=== PATIENT | female | born 1940 | race Caucasian/White ===

== ENCOUNTER 2018-02-15 09:07 | Inpatient (IN) | payer MEDICARE, OTHER ==
[2018-02-15] MEDS ORDERED: Sodium Chloride 0.9% 10 ML Syringe FLUSH PRN (09:30)
[2018-02-15] MEDS ORDERED: Sodium Chloride 0.9% 1,000 ML IV ONE ×2 (09:46→11:22)
--- NOTE | 2018-02-15 09:46 | EDM.PDOC ---
ED HPI GENERAL MEDICAL PROBLEM - General Chief Complaint: Gastrointestinal Problem Stated Complaint: FEVER DIARRHEA Time Seen by Provider: 02/15/18 09:29 Source of Information: Reports: Patient History Limitations: Reports: No Limitations - History of Present Illness INITIAL COMMENTS - FREE TEXT/NARRATIVE: The patient is a 77-year-old female with history of irritable bowel syndrome who presents with diarrhea and fever. States that she's been ill for about a week. She traveled to [place] last week and upon arrival home started having diarrhea. Nobody else is ill. No camping. No exposure to known contaminated food or water. She's had some occasional crampy abdominal pain but nothing atypical for her. No pain at the time now. States that she's had intermittent fevers, temperature was as high as 101.8 last night. No vomiting. Decreased appetite. She is able to drink fluids but is not consuming solids due to low appetite. States she's lost 13 pounds in the last week. No urinary symptoms. No additional complaint. No cough. No recent antibiotics. No ill contacts. - Related Data Allergies Allergy/AdvReac Type Severity Reaction Status Date / Time Sulfa (Sulfonamide Allergy Other Verified 02/15/18 09:20 Antibiotics) tetracycline Allergy Other Verified 02/15/18 09:20 theophylline Allergy Excitabilit Verified 02/15/18 09:20 y Home Meds: Home Meds Benazepril [Lotensin] 20 mg PO DAILY 02/15/18 [History] Hydrochlorothiazide. 1 tab PO DAILY 02/15/18 [History] Past Medical History Cardiovascular History: Reports: Hypertension Gastrointestinal History: Reports: Irritable Bowel Syndrome Social & Family History - Tobacco Use Smoking Status *Q: Never Smoker ED ROS GENERAL - Review of Systems Review Of Systems: See Below Constitutional: Reports: Fever, Chills, Malaise, Weakness, Fatigue HEENT: Reports: No Symptoms Respiratory: Denies: Shortness of Breath Cardiovascular: Denies: Chest Pain Endocrine: Reports: Fatigue GI/Abdominal: Reports: Diarrhea, Decreased Appetite : Denies: Dysuria Musculoskeletal: Reports: No Symptoms Skin: Reports: No Symptoms Neurological: Reports: No Symptoms Psychiatric: Reports: No Symptoms Hematologic/Lymphatic: Reports: No Symptoms Immunologic: Reports: No Symptoms ED EXAM, GI/ABD - Physical Exam Exam: See Below Exam Limited By: No Limitations General Appearance: Alert, WD/WN, No Apparent Distress Eyes: Bilateral: Normal Appearance Ears: Normal External Exam Nose: Normal Inspection Throat/Mouth: Normal Inspection, Normal Oropharynx, Normal Voice, No Airway Compromise Head: Atraumatic, Normocephalic Neck: Normal Inspection, Supple, Non-Tender, Full Range of Motion Respiratory/Chest: No Respiratory Distress, Lungs Clear, Normal Breath Sounds, Chest Non-Tender Cardiovascular: Normal Peripheral Pulses, Regular Rate, Rhythm, No Edema GI/Abdominal Exam: Soft, Non-Tender, No Distention. No: Rebound Back Exam: Normal Inspection Extremities: Normal Inspection Neurological: Alert, Oriented, Normal Cognition, No Motor/Sensory Deficits Psychiatric: Normal Affect, Normal Mood Skin Exam: Warm, Dry, Intact, Normal Color, No Rash Course - Vital Signs Last Recorded V/S: Last Vital Signs Temp 37.0 C 02/15/18 09:20 Pulse 96 02/15/18 09:20 Resp 20 02/15/18 09:20 BP 123/63 02/15/18 09:20 Pulse Ox 95 02/15/18 09:20 - Orders/Labs/Meds Orders: Active Orders 24 hr Category Date Time Status EKG 12 Lead [EKG Documentation Completion] [RC] STAT Care 02/15/18 11:23 Active CAMPYLOBACTER CULT [MREF] Stat Lab 02/15/18 09:30 Ordered CULTURE STOOL + SHIGATOX [RM] Stat Lab 02/15/18 09:30 Ordered Magnesium Sulfate/Water [Magnesium Sulfate 2 GM in Med 02/15/18 11:22 Active Water 50 ML] 2 gm Premix Bag 1 bag IV ONETIME Potassium Chloride [KCl 10 MEQ in Water 100 ML] 10 meq Med 02/15/18 11:30 Active Premix Bag 1 bag IV Q1H Sodium Chloride 0.9% [Saline Flush] Med 02/15/18 09:30 Active 10 ml FLUSH ASDIRECTED PRN Peripheral IV Insertion Adult [OM.PC] Routine Oth 02/15/18 09:30 Ordered Medication Orders Potassium Chloride 10 meq/ (Premix) 100 mls @ 100 mls/hr IV Q1H EDITH Stop: 02/15/18 15:29 Last Admin: 02/15/18 12:44 Dose: 100 mls/hr Infusion: 02/15/18 12:44 Dose: 100 mls/hr Admin: 02/15/18 11:51 Dose: 100 mls/hr Magnesium Sulfate 2 gm/ Premix 50 mls @ 25 mls/hr IV ONETIME ONE Stop: 02/15/18 13:21 Last Admin: 02/15/18 11:50 Dose: 25 mls/hr Sodium Chloride (Saline Flush) 10 ml FLUSH ASDIRECTED PRN PRN Reason: Keep Vein Open Last Admin: 02/15/18 09:57 Dose: 10 ml Labs: Laboratory Tests 02/15/18 02/15/18 02/15/18 Range/Units 10:07 10:07 11:23 WBC 15.98 H (3.98-10.04) K/mm3 RBC 4.56 (3.98-5.22) M/mm3 Hgb 12.8 (11.2-15.7) gm/L Hct 37.1 (34.1-44.9) % MCV 81.4 (79.4-94.8) fl MCH 28.1 (25.6-32.2) pg MCHC 34.5 (32.2-35.5) g/dl RDW Std Deviation 42.9 (36.4-46.3) fL Plt Count 324 (182-369) K/mm3 MPV 9.5 (9.4-12.3) fl Neut % (Auto) 86.3 H (34.0-71.1) % Lymph % (Auto) 2.1 L (19.3-51.7) % [place] % (Auto) 10.3 (4.7-12.5) % Eos % (Auto) 0.4 L (0.7-5.8) Baso % (Auto) 0.1 (0.1-1.2) % Neut # (Auto) 13.78 H (1.56-6.13) K/mm3 Lymph # (Auto) 0.34 L (1.18-3.74) K/mm3 [place] # (Auto) 1.65 H (0.24-0.36) K/mm3 Eos # (Auto) 0.07 (0.04-0.36) K/mm3 Baso # (Auto) 0.02 (0.01-0.08) K/mm3 Manual Slide Review Abnormal smear Sodium 134 L (136-145) mEq/L Potassium 2.5 L (3.5-5.1) mEq/L Chloride 96 L (98-107) mEq/L Carbon Dioxide 26 (21-32) mEq/L Anion Gap 14.5 (5-15) BUN 29 H (7-18) mg/dL Creatinine 1.2 H (0.55-1.02) mg/dL Est Cr Clr Drug Dosing 32.99 mL/min Estimated GFR (MDRD) 44 (>60) mL/min BUN/Creatinine Ratio 24.2 H (14-18) Glucose 111 (83-115) mg/dL Calcium 8.3 L (8.5-10.1) mg/dL Magnesium 1.5 L (1.8-2.4) mg/dl Total Bilirubin 0.4 (0.2-1.0) mg/dL AST 65 H (15-37) U/L ALT 55 (14-59) U/L Alkaline Phosphatase 250 H (46-116) U/L Total Protein 6.6 (6.4-8.2) g/dl Albumin 2.3 L (3.4-5.0) g/dl Globulin 4.3 gm/dL Albumin/Globulin Ratio 0.5 L (1-2) Lipase 96 (73-393) U/L Urine Color Yellow (Yellow) Urine Appearance Cloudy H (Clear) Urine pH 6.0 (5.0-8.0) Ur Specific [place] 1.020 (1.005-1.030) Urine Protein 1+ H (Negative) Urine Glucose (UA) Negative (Negative) Urine Ketones Negative (Negative) Urine Occult Blood 2+ H (Negative) Urine Nitrite Negative (Negative) Urine Bilirubin Negative (Negative) Urine Urobilinogen 0.2 (0.2-1.0) Ur Leukocyte Esterase 2+ H (Negative) Urine RBC 10-20 H (0-5) /hpf Urine WBC 10-20 H (0-5) /hpf Ur Epithelial Cells 5-10 H (0-5) /hpf Urine Bacteria Many H (FEW) /hpf Hyaline Casts 0-5 (0-5) /lpf Urine Mucus Few (FEW) /hpf Meds: Medications Generic Name Dose Route Start Last Admin Trade Name Freq PRN Reason Stop Dose Admin Potassium Chloride 10 meq/ 100 mls @ 100 mls/hr 02/15/18 11:30 02/15/18 12:44 Premix IV 02/15/18 15:29 100 mls/hr Q1H EDITH Administration Magnesium Sulfate 2 gm/ Premix 50 mls @ 25 mls/hr 02/15/18 11:22 02/15/18 11: 50 IV 02/15/18 13:21 25 mls/hr ONETIME ONE Administration Sodium Chloride 10 ml 02/15/18 09:30 02/15/18 09:57 Saline Flush FLUSH 10 ml ASDIRECTED PRN Administration Keep Vein Open Discontinued Medications Generic Name Dose Route Start Last Admin Trade Name Freq PRN Reason Stop Dose Admin Sodium Chloride 1,000 mls @ 1,000 mls/hr 02/15/18 09:46 02/15/18 09:58 Normal Saline IV 02/15/18 10:45 1,000 mls/hr ONETIME ONE Administration Sodium Chloride 1,000 mls @ 1,000 mls/hr 02/15/18 11:22 02/15/18 11:51 Normal Saline IV 02/15/18 12:21 1,000 mls/hr ONETIME ONE Administration Potassium Chloride 40 meq 02/15/18 11:21 02/15/18 11:51 Klor-Con M20 PO 02/15/18 11:22 Not Given ONETIME ONE - Re-Assessments/Exams Free Text/Narrative Re-Assessment/Exam: 02/15/18 11:35 Lab significant for potassium of 2.5 and magnesium of 1.5. We'll replete. White count elevated at 16,000. However patient does not have a tender abdomen, will not image. Stool studies have been ordered. Discussed with Dr. Yang who agrees to evaluate the patient for admission. 02/15/18 13:04 Dr. Yang saw the patient in the emergency department and agreed to admit her. Departure - Departure Time of Disposition: 12:15 Disposition: Refer to Observation Clinical Impression: Hypokalemia, Hypomagnesemia, Dehydration Diarrhea Qualifiers: Diarrhea type: presumed infectious Qualified Code(s): R19.7 - Diarrhea, unspecified - Discharge Information - My Orders Last 24 Hours: My Active Orders 02/15/18 09:30 CAMPYLOBACTER CULT [MREF] Stat CULTURE STOOL + SHIGATOX [RM] Stat Sodium Chloride 0.9% [Saline Flush] 10 ml FLUSH ASDIRECTED PRN Peripheral IV Insertion Adult [OM.PC] Routine 02/15/18 11:22 Magnesium Sulfate/Water [Magnesium Sulfate 2 GM in Water 50 ML] 2 gm Premix Bag 1 bag IV ONETIME 02/15/18 11:23 EKG 12 Lead [EKG Documentation Completion] [RC] STAT 02/15/18 11:30 Potassium Chloride [KCl 10 MEQ in Water 100 ML] 10 meq Premix Bag 1 bag IV Q1H - Assessment/Plan Last 24 Hours: My Active Orders 02/15/18 09:30 CAMPYLOBACTER CULT [MREF] Stat CULTURE STOOL + SHIGATOX [RM] Stat Sodium Chloride 0.9% [Saline Flush] 10 ml FLUSH ASDIRECTED PRN Peripheral IV Insertion Adult [OM.PC] Routine 02/15/18 11:22 Magnesium Sulfate/Water [Magnesium Sulfate 2 GM in Water 50 ML] 2 gm Premix Bag 1 bag IV ONETIME 02/15/18 11:23 EKG 12 Lead [EKG Documentation Completion] [RC] STAT 02/15/18 11:30 Potassium Chloride [KCl 10 MEQ in Water 100 ML] 10 meq Premix Bag 1 bag IV Q1H
[2018-02-15] MEDS ORDERED: Potassium Chloride 20 MEQ Tab.ER PO ONE (11:21)
[2018-02-15] MEDS ORDERED: Magnesium Sulfate/Water 2 GM in Premix Bag 1 BAG IV ONE ×2 (11:22→18:00)
[2018-02-15] MEDS: Potassium Chloride 10 MEQ in Premix Bag 1 BAG IV SCH ×4 (11:51→18:21)
--- NOTE | 2018-02-15 12:59 | PCM.HP ---
H&P History of Present Illness - General Date of Service: 02/15/18 Admit Problem/Dx: Admission Diagnosis/Problem Admission Diagnosis/Problem Gastroenteritis Source of Information: Patient, Provider History Limitations: Reports: No Limitations - History of Present Illness Initial Comments - Free Text/Narative: 77 year old female with 1-2 week history of frequent stool without blood. However has had occasional bowel movements with mucous in the stool. Admits to fever on occasion, headache, nausea without vomiting. [place] Denies raw food, being exposed to different foods. Has experienced weight loss, and has had decreased appetite. Unable to describe frequency of bowel movement. reports PMH HTN, IBS. Has been admitted to obs with telemetry. Code: DNR/DNI Onset of Symptoms: Reports: Gradual Symptom Onset Date: 02/08/18 Duration of Symptoms: Reports: Week(s):, Getting Worse Location: Reports: Generalized Severity: Moderate Improves with: Reports: Medication Worsens with: Reports: None Context: Reports: Sick Contact (unknown) Associated Symptoms: Reports: Fever/Chills, Loss of Appetite, Malaise, Nausea/ Vomiting, Weakness Abdomen Pain Score (Numeric/FACES): 2 - Related Data Allergies/Adverse Reactions: Allergies Allergy/AdvReac Type Severity Reaction Status Date / Time Sulfa (Sulfonamide Allergy Other Verified 02/15/18 09:20 Antibiotics) tetracycline Allergy Other Verified 02/15/18 09:20 theophylline Allergy Excitabilit Verified 02/15/18 09:20 y Home Medications: Home Meds Benazepril [Lotensin] 20 mg PO DAILY 02/15/18 [History] Hydrochlorothiazide. 1 tab PO DAILY 02/15/18 [History] Past Medical History Cardiovascular History: Reports: Hypertension Gastrointestinal History: Reports: Irritable Bowel Syndrome Social & Family History - Tobacco Use Smoking Status *Q: Never Smoker H&P Review of Systems - Review of Systems: Review Of Systems: See Below General: Reports: Malaise, Weakness, Fatigue HEENT: Reports: Headaches Pulmonary: Reports: No Symptoms Cardiovascular: Reports: No Symptoms Gastrointestinal: Reports: Abdominal Pain, Mucous in Stool, Nausea Genitourinary: Reports: No Symptoms Musculoskeletal: Reports: No Symptoms Skin: Reports: No Symptoms Psychiatric: Reports: No Symptoms Neurological: Reports: No Symptoms Exam - Exam Exam: See Below - Vital Signs Vital Signs: Last Vital Signs Temp 37.0 C 02/15/18 09:20 Pulse 96 02/15/18 09:20 Resp 20 02/15/18 09:20 BP 123/63 02/15/18 09:20 Pulse Ox 95 02/15/18 09:20 Weight: 81.647 kg - Exam Quality Assessment: DVT Prophylaxis General: Alert, Oriented, Cooperative HEENT: Conjunctiva Clear, Nares Patent, Normal Nasal Septum, Pupils Equal, Pupils Reactive, PERRLA Neck: Trachea Midline Lungs: Normal Respiratory Effort Cardiovascular: Regular Rate, Regular Rhythm GI/Abdominal Exam: Normal Bowel Sounds, Soft, Non-Tender, No Organomegaly, No Distention (Female) Exam: Deferred Rectal (Female) Exam: Deferred Back Exam: Normal Inspection Extremities: Normal Inspection, Non-Tender, Slow Capillary Refill Skin: Warm, Dry, Intact Neurological: Cranial Nerves Intact, Normal Gait, Normal Speech Neuro Extensive - Mental Status: Alert, Oriented x3, Normal Mood/Affect, Normal Cognition, Memory Intact Neuro Extensive - Motor, Sensory, Reflexes: CN II-XII Intact Psychiatric: Alert, Normal Affect, Normal Mood - Patient Data Lab Results Last 24 hrs: Laboratory Results - last 24 hr 02/15/18 02/15/18 02/15/18 Range/Units 10:07 10:07 11:23 WBC 15.98 H (3.98-10.04) K/mm3 RBC 4.56 (3.98-5.22) M/mm3 Hgb 12.8 (11.2-15.7) gm/L Hct 37.1 (34.1-44.9) % MCV 81.4 (79.4-94.8) fl MCH 28.1 (25.6-32.2) pg MCHC 34.5 (32.2-35.5) g/dl RDW Std Deviation 42.9 (36.4-46.3) fL Plt Count 324 (182-369) K/mm3 MPV 9.5 (9.4-12.3) fl Neut % (Auto) 86.3 H (34.0-71.1) % Lymph % (Auto) 2.1 L (19.3-51.7) % [place] % (Auto) 10.3 (4.7-12.5) % Eos % (Auto) 0.4 L (0.7-5.8) Baso % (Auto) 0.1 (0.1-1.2) % Neut # (Auto) 13.78 H (1.56-6.13) K/mm3 Lymph # (Auto) 0.34 L (1.18-3.74) K/mm3 [place] # (Auto) 1.65 H (0.24-0.36) K/mm3 Eos # (Auto) 0.07 (0.04-0.36) K/mm3 Baso # (Auto) 0.02 (0.01-0.08) K/mm3 Manual Slide Review Abnormal smear Sodium 134 L (136-145) mEq/L Potassium 2.5 L (3.5-5.1) mEq/L Chloride 96 L (98-107) mEq/L Carbon Dioxide 26 (21-32) mEq/L Anion Gap 14.5 (5-15) BUN 29 H (7-18) mg/dL Creatinine 1.2 H (0.55-1.02) mg/dL Est Cr Clr Drug Dosing 32.99 mL/min Estimated GFR (MDRD) 44 (>60) mL/min BUN/Creatinine Ratio 24.2 H (14-18) Glucose 111 (83-115) mg/dL Calcium 8.3 L (8.5-10.1) mg/dL Magnesium 1.5 L (1.8-2.4) mg/dl Total Bilirubin 0.4 (0.2-1.0) mg/dL AST 65 H (15-37) U/L ALT 55 (14-59) U/L Alkaline Phosphatase 250 H (46-116) U/L Total Protein 6.6 (6.4-8.2) g/dl Albumin 2.3 L (3.4-5.0) g/dl Globulin 4.3 gm/dL Albumin/Globulin Ratio 0.5 L (1-2) Lipase 96 (73-393) U/L Urine Color Yellow (Yellow) Urine Appearance Cloudy H (Clear) Urine pH 6.0 (5.0-8.0) Ur Specific [place] 1.020 (1.005-1.030) Urine Protein 1+ H (Negative) Urine Glucose (UA) Negative (Negative) Urine Ketones Negative (Negative) Urine Occult Blood 2+ H (Negative) Urine Nitrite Negative (Negative) Urine Bilirubin Negative (Negative) Urine Urobilinogen 0.2 (0.2-1.0) Ur Leukocyte Esterase 2+ H (Negative) Urine RBC 10-20 H (0-5) /hpf Urine WBC 10-20 H (0-5) /hpf Ur Epithelial Cells 5-10 H (0-5) /hpf Urine Bacteria Many H (FEW) /hpf Hyaline Casts 0-5 (0-5) /lpf Urine Mucus Few (FEW) /hpf Result Diagrams: 02/15/18 10:07 02/15/18 10:07 - Problem List (1) Hypertension SNOMED Code(s): 06664113 ICD Code: I10 - ESSENTIAL (PRIMARY) HYPERTENSION Status: Acute Current Visit: Yes (2) Dehydration SNOMED Code(s): 55542842 ICD Code: E86.0 - DEHYDRATION Status: Acute Current Visit: Yes (3) Diarrhea SNOMED Code(s): 63500196 ICD Code: R19.7 - DIARRHEA, UNSPECIFIED Status: Acute Current Visit: Yes Qualifiers: Diarrhea type: presumed infectious Qualified Code(s): R19.7 - Diarrhea, unspecified (4) Hypokalemia SNOMED Code(s): 99726916 ICD Code: E87.6 - HYPOKALEMIA Status: Acute Current Visit: Yes (5) Hypomagnesemia SNOMED Code(s): 450112341 ICD Code: E83.42 - HYPOMAGNESEMIA Status: Acute Current Visit: Yes Problem List Initiated/Reviewed/Updated: Yes Orders Last 24hrs: Active Orders 24 hr Category Date Time Status Patient Status [ADT] Routine ADT 02/15/18 12:39 Active EKG 12 Lead [EKG Documentation Completion] [RC] STAT Care 02/15/18 11:23 Active CAMPYLOBACTER CULT [MREF] Stat Lab 02/15/18 09:30 Ordered CULTURE STOOL + SHIGATOX [RM] Stat Lab 02/15/18 09:30 Ordered Magnesium Sulfate/Water [Magnesium Sulfate 2 GM in Med 02/15/18 11:22 Active Water 50 ML] 2 gm Premix Bag 1 bag IV ONETIME Potassium Chloride [KCl 10 MEQ in Water 100 ML] 10 meq Med 02/15/18 11:30 Active Premix Bag 1 bag IV Q1H Sodium Chloride 0.9% [Saline Flush] Med 02/15/18 09:30 Active 10 ml FLUSH ASDIRECTED PRN Peripheral IV Insertion Adult [OM.PC] Routine Oth 02/15/18 09:30 Ordered Medication Orders Potassium Chloride 10 meq/ (Premix) 100 mls @ 100 mls/hr IV Q1H EDITH Stop: 02/15/18 15:29 Last Admin: 02/15/18 12:44 Dose: 100 mls/hr Infusion: 02/15/18 12:44 Dose: 100 mls/hr Admin: 02/15/18 11:51 Dose: 100 mls/hr Magnesium Sulfate 2 gm/ Premix 50 mls @ 25 mls/hr IV ONETIME ONE Stop: 02/15/18 13:21 Last Admin: 02/15/18 11:50 Dose: 25 mls/hr Sodium Chloride (Saline Flush) 10 ml FLUSH ASDIRECTED PRN PRN Reason: Keep Vein Open Last Admin: 02/15/18 09:57 Dose: 10 ml Assessment/Plan Comment:: Impression: Abdominal pain with diarrhea; no recent ravel or sick exposure Acute gastroenteritis Electrolyte abnormalities Chronic HTN IBS Plan: IVF Advance diet as tolerated. Electrolyte replacement Stool studies CT abd/pelvis w/ contrast DVT/GI prophylaxis Full code OBS admission. Code status: DNR/DNI Consult PT/OT/CM
[2018-02-15] MEDS: Sodium Chloride 0.9% 1,000 ML IV SCH ×2 (13:15→21:03)
[2018-02-15] MEDS: Sodium Chloride 0.9% 1,000 ML ONE ×2 (14:08→14:09)
[2018-02-15] MEDS ORDERED: Bismuth Subsalicylate 262 MG/15 ML Susp 236 ML Bottle PO PRN (14:41)
[2018-02-15] MEDS ORDERED: Famotidine 20 MG/2 ML SDV IVPUSH SCH (14:45)
[2018-02-15] MEDS ORDERED: hydrALAZINE 20 MG/ML SDV IVPUSH PRN (16:22)
[2018-02-15] MEDS: Dicyclomine 10 MG Cap PO SCH ×2 (18:10→21:03)
[2018-02-15] MEDS ORDERED: Potassium Chloride 10 MEQ in Premix Bag 1 BAG IV ONE (18:15)
[2018-02-15] MEDS: Potassium Chloride 10% 20 MEQ/15 ML Soln 15 ML UD Cup PO SCH ×2 (18:17→18:24)
[2018-02-15] MEDS ORDERED: Acetaminophen 325 MG Tab PO PRN (19:09)
[2018-02-15] MEDS: Famotidine 20 MG/2 ML SDV IVPUSH SCH (20:18)
[2018-02-16] MEDS: Dicyclomine 10 MG Cap PO SCH ×4 (06:01→22:35)
[2018-02-16] MEDS: Potassium Chloride 10% 20 MEQ/15 ML Soln 15 ML UD Cup PO SCH ×2 (06:01→12:51)
[2018-02-16] MEDS ORDERED: Ondansetron 4 MG/2 ML SDV IVPUSH PRN (07:04)
[2018-02-16] MEDS: Sodium Chloride 0.9% 1,000 ML IV SCH ×2 (09:58→16:42)
--- NOTE | 2018-02-16 13:13 | PCM.PN ---
<Elida Panda - Last Filed: 02/16/18 14:26> - General Info Date of Service: 02/16/18 Admission Dx/Problem (Free Text): Admission Diagnosis/Problem Admission Diagnosis/Problem Gastroenteritis Functional Status: Reports: Pain Controlled, Tolerating Diet, Ambulating, Urinating - Review of Systems General: Reports: Weakness, Fatigue HEENT: Reports: No Symptoms Pulmonary: Reports: No Symptoms Cardiovascular: Reports: No Symptoms Gastrointestinal: Reports: Abdominal Pain, Diarrhea Genitourinary: Reports: No Symptoms Musculoskeletal: Reports: No Symptoms Skin: Reports: No Symptoms Neurological: Reports: No Symptoms Psychiatric: Reports: No Symptoms Systems Review Comment:: Patient is still experiencing diarrhea, associated with abdominal cramps. She still has some weakness and fatigue though this has improved. She denies all other symptoms. Appetite has returned and she would like to eat. - Patient Data Vitals - Most Recent: Last Vital Signs Temp 97.9 F 02/16/18 08:21 Pulse 83 02/16/18 08:21 Resp 24 H 02/16/18 08:21 BP 129/58 L 02/16/18 08:21 Pulse Ox 92 L 02/16/18 08:21 Weight - Most Recent: 85.502 kg I&O - Last 24 Hours: Intake & Output 02/15/18 02/16/18 02/16/18 22:59 06:59 14:59 Intake Total 1595 1352 Output Total 2200 Balance 1595 -848 Lab Results Last 24 Hours: Laboratory Results - last 24 hr 02/16/18 02/16/18 02/16/18 Range/Units 06:35 06:35 06:35 WBC 11.49 H (3.98-10.04) K/mm3 RBC 4.28 (3.98-5.22) M/mm3 Hgb 11.7 (11.2-15.7) gm/L Hct 35.3 (34.1-44.9) % MCV 82.5 (79.4-94.8) fl MCH 27.3 (25.6-32.2) pg MCHC 33.1 (32.2-35.5) g/dl RDW Std Deviation 42.7 (36.4-46.3) fL Plt Count 312 (182-369) K/mm3 MPV 9.4 (9.4-12.3) fl Neut % (Auto) 80.6 H (34.0-71.1) % Lymph % (Auto) 4.9 L (19.3-51.7) % [place] % (Auto) 12.6 H (4.7-12.5) % Eos % (Auto) 0.8 (0.7-5.8) Baso % (Auto) 0.2 (0.1-1.2) % Neut # (Auto) 9.27 H (1.56-6.13) K/mm3 Lymph # (Auto) 0.56 L (1.18-3.74) K/mm3 [place] # (Auto) 1.45 H (0.24-0.36) K/mm3 Eos # (Auto) 0.09 (0.04-0.36) K/mm3 Baso # (Auto) 0.02 (0.01-0.08) K/mm3 Manual Slide Review Abnormal smear Sodium 137 (136-145) mEq/L Potassium 3.4 L (3.5-5.1) mEq/L Chloride 102 (98-107) mEq/L Carbon Dioxide 27 (21-32) mEq/L Anion Gap 11.4 (5-15) BUN 11 (7-18) mg/dL Creatinine 0.9 (0.55-1.02) mg/dL Est Cr Clr Drug Dosing 42.06 mL/min Estimated GFR (MDRD) > 60 (>60) mL/min BUN/Creatinine Ratio 12.2 L (14-18) Glucose 120 H (83-115) mg/dL Calcium 8.2 L (8.5-10.1) mg/dL Magnesium 2.0 (1.8-2.4) mg/dl C-Reactive Protein 21.4 H* (<1.0) mg/dL H. pylori IgG Antibody Negative (NEGATIVE) Gera Results Last 24 Hours: Microbiology 02/16/18 06:50 Helicobacter pylori Antigen - Final Stool / Feces - Stool, Formed NEGATIVE H. PYLORI AG Med Orders - Current: Current Medications Acetaminophen (Tylenol) 650 mg PO Q4H PRN PRN Reason: Pain/Fever Last Admin: 02/16/18 00:25 Dose: 650 mg Bismuth Subsalicylate (Pepto Bismol) 15 ml PO Q6H PRN PRN Reason: Diarrhea Dicyclomine HCl (Bentyl) 10 mg PO QIDACANDBED [facility] Last Admin: 02/16/18 11:44 Dose: 10 mg Famotidine (Pepcid) 20 mg IVPUSH BEDTIME [facility] Last Admin: 02/15/18 20:18 Dose: 20 mg Hydralazine HCl (Apresoline) 20 mg IVPUSH Q6H PRN PRN Reason: Hypertension Sodium Chloride (Normal Saline) 1,000 mls @ 150 mls/hr IV ASDIRECTED [facility] Last Admin: 02/16/18 09:58 Dose: 150 mls/hr Ondansetron HCl (Zofran) 4 mg IVPUSH Q4HR PRN PRN Reason: Nausea/Vomiting Last Admin: 02/16/18 07:14 Dose: 4 mg Sodium Chloride (Saline Flush) 10 ml FLUSH ASDIRECTED PRN PRN Reason: Keep Vein Open Last Admin: 02/15/18 09:57 Dose: 10 ml Discontinued Medications Famotidine (Pepcid) 20 mg IVPUSH BID [facility] [place] Last Admin: 02/15/18 22:04 Dose: Not Given Sodium Chloride (Normal Saline) 1,000 mls @ 1,000 mls/hr IV ONETIME ONE Stop: 02/15/18 10:45 Last Admin: 02/15/18 09:58 Dose: 1,000 mls/hr Potassium Chloride 10 meq/ (Premix) 100 mls @ 100 mls/hr IV Q1H [facility] Stop: 02/15/18 15:29 Last Admin: 02/15/18 18:21 Dose: 100 mls/hr Magnesium Sulfate 2 gm/ Premix 50 mls @ 25 mls/hr IV ONETIME ONE Stop: 02/15/18 13:21 Last Admin: 02/15/18 11:50 Dose: 25 mls/hr Sodium Chloride (Normal Saline) 1,000 mls @ 1,000 mls/hr IV ONETIME ONE Stop: 02/15/18 12:21 Last Admin: 02/15/18 11:51 Dose: 1,000 mls/hr Sodium Chloride (Normal Saline) Confirm Administered Dose 1,000 mls @ as directed .ROUTE .STK-MED ONE Stop: 02/15/18 13:17 Last Admin: 02/15/18 14:09 Dose: Not Given Magnesium Sulfate 2 gm/ Premix 50 mls @ 25 mls/hr IV ONETIME ONE Stop: 02/15/18 19:59 Last Admin: 02/15/18 17:59 Dose: 25 mls/hr Potassium Chloride 10 meq/ (Premix) 100 mls @ 100 mls/hr IV ONETIME ONE Stop: 02/15/18 19:14 Last Admin: 02/15/18 18:23 Dose: Not Given Potassium Chloride (Klor-Con M20) 40 meq PO ONETIME ONE Stop: 02/15/18 11:22 Last Admin: 02/15/18 11:51 Dose: Not Given Potassium Chloride (Potassium Chloride Solution) 40 meq PO TIDMEALS [facility] Stop: 02/16/18 07:01 Last Admin: 02/15/18 18:24 Dose: Not Given Potassium Chloride (Potassium Chloride Solution) 40 meq PO TIDMEALS [facility] [place] Stop: 02/16/18 11:01 Last Admin: 02/16/18 12:51 Dose: Not Given - Exam Quality Assessment: DVT Prophylaxis General: Alert, Oriented, Cooperative, No Acute Distress HEENT: Pupils Equal, Pupils Reactive, EOMI, Mucous Membr. Moist/[place] Neck: Supple Lungs: Clear to Auscultation, Normal Respiratory Effort Cardiovascular: Regular Rate, Regular Rhythm GI/Abdominal Exam: Normal Bowel Sounds, Soft, Non-Tender (Female) Exam: Deferred Extremities: Normal Inspection, Normal Range of Motion, Non-Tender Peripheral Pulses: 2+: Radial (L), Radial (R), Posterior Tibial (L), Posterior Tibial (R) Skin: Warm, Dry, Intact Neurological: No New Focal Deficit Psy/Mental Status: Alert, Normal Affect, Normal Mood Physical Findings Comments:: Patient appears comfortable and in no acute distress. She is pleasant and cooperative. No abnormalities are found upon physical exam. No abdominal tenderness upon palpation and no abnormal bowel sounds are appreciated. - Problem List & Annotations (1) Diarrhea SNOMED Code(s): 02715131 Code(s): R19.7 - DIARRHEA, UNSPECIFIED Status: Acute Current Visit: Yes Qualifiers: Diarrhea type: presumed infectious Qualified Code(s): R19.7 - Diarrhea, unspecified (2) Hypokalemia SNOMED Code(s): 91582552 Code(s): E87.6 - HYPOKALEMIA Status: Acute Current Visit: Yes (3) Hypomagnesemia SNOMED Code(s): 198118272 Code(s): E83.42 - HYPOMAGNESEMIA Status: Acute Current Visit: Yes - Problem List Review Problem List Initiated/Reviewed/Updated: Yes - Plan Plan:: Acute gastroenteritis * Consistent with presentation of diarrhea, abdominal pain, fever * No sick contact * Recent travel to [place] * History of IBS * WBC elevated at 15.98 upon admission; now decreased to 11.49 * CRP elevated at 21.4 * Evaluation * Negative for H. pylori * Stool culture pending * Stool ova/parasites pending * Management * IVF * Advance diet as tolerated * Supportive care Electrolyte abnormalities * 2/2 to diarrhea; lack of dietary intake * Potassium improved from 2.5 to 3.4 * Magnesium improved from 1.5 to 2.0 * Chloride improved 96 to 102 * Continue electrolyte replacement prn DVT/GI prophylaxis OBS admission. Code status: DNR/DNI Consult PT/OT/CM/diet Elida Panda, MS-3. Dr. Stock has examined the patient and reviewed the note. <Gus Stock T - Last Filed: 02/16/18 17:47> - Patient Data Vitals - Most Recent: Last Vital Signs Temp 36.6 C 02/16/18 08:21 Pulse 83 02/16/18 08:21 Resp 24 H 02/16/18 08:21 BP 129/58 L 02/16/18 08:21 Pulse Ox 92 L 02/16/18 08:21 I&O - Last 24 Hours: Intake & Output 02/16/18 02/16/18 02/16/18 06:59 14:59 22:59 Intake Total 1352 120 760 Output Total 2200 Balance -848 120 760 Lab Results Last 24 Hours: Laboratory Results - last 24 hr 02/16/18 02/16/18 02/16/18 Range/Units 06:35 06:35 06:35 WBC 11.49 H (3.98-10.04) K/mm3 RBC 4.28 (3.98-5.22) M/mm3 Hgb 11.7 (11.2-15.7) gm/L Hct 35.3 (34.1-44.9) % MCV 82.5 (79.4-94.8) fl MCH 27.3 (25.6-32.2) pg MCHC 33.1 (32.2-35.5) g/dl RDW Std Deviation 42.7 (36.4-46.3) fL Plt Count 312 (182-369) K/mm3 MPV 9.4 (9.4-12.3) fl Neut % (Auto) 80.6 H (34.0-71.1) % Lymph % (Auto) 4.9 L (19.3-51.7) % [place] % (Auto) 12.6 H (4.7-12.5) % Eos % (Auto) 0.8 (0.7-5.8) Baso % (Auto) 0.2 (0.1-1.2) % Neut # (Auto) 9.27 H (1.56-6.13) K/mm3 Lymph # (Auto) 0.56 L (1.18-3.74) K/mm3 [place] # (Auto) 1.45 H (0.24-0.36) K/mm3 Eos # (Auto) 0.09 (0.04-0.36) K/mm3 Baso # (Auto) 0.02 (0.01-0.08) K/mm3 Manual Slide Review Abnormal smear Sodium 137 (136-145) mEq/L Potassium 3.4 L (3.5-5.1) mEq/L Chloride 102 (98-107) mEq/L Carbon Dioxide 27 (21-32) mEq/L Anion Gap 11.4 (5-15) BUN 11 (7-18) mg/dL Creatinine 0.9 (0.55-1.02) mg/dL Est Cr Clr Drug Dosing 42.06 mL/min Estimated GFR (MDRD) > 60 (>60) mL/min BUN/Creatinine Ratio 12.2 L (14-18) Glucose 120 H (83-115) mg/dL Calcium 8.2 L (8.5-10.1) mg/dL Magnesium 2.0 (1.8-2.4) mg/dl C-Reactive Protein 21.4 H* (<1.0) mg/dL H. pylori IgG Antibody Negative (NEGATIVE) Gera Results Last 24 Hours: Microbiology 02/15/18 15:20 Aerobic Blood Culture - Preliminary Blood NO GROWTH AFTER 1 DAY Anaerobic Blood Culture - Preliminary NO GROWTH AFTER 1 DAY 02/16/18 06:50 Helicobacter pylori Antigen - Final Stool / Feces - Stool, Formed NEGATIVE H. PYLORI AG Med Orders - Current: Current Medications Acetaminophen (Tylenol) 650 mg PO Q4H PRN PRN Reason: Pain/Fever Last Admin: 02/16/18 00:25 Dose: 650 mg Benazepril HCl (Lotensin) 20 mg PO DAILY [facility] Bismuth Subsalicylate (Pepto Bismol) 15 ml PO Q6H PRN PRN Reason: Diarrhea Dicyclomine HCl (Bentyl) 10 mg PO QIDACANDBED [facility] Last Admin: 02/16/18 11:44 Dose: 10 mg Famotidine (Pepcid) 20 mg IVPUSH BEDTIME [facility] Last Admin: 02/15/18 20:18 Dose: 20 mg Hydralazine HCl (Apresoline) 20 mg IVPUSH Q6H PRN PRN Reason: Hypertension Hydrochlorothiazide (Hydrochlorothiazide) 25 mg PO DAILY [facility] Sodium Chloride (Normal Saline) 1,000 mls @ 150 mls/hr IV ASDIRECTED [facility] Last Admin: 02/16/18 16:42 Dose: 150 mls/hr Potassium Chloride 10 meq/ (Premix) 100 mls @ 50 mls/hr IV Q2H [facility] Stop: 02/16/18 18:59 Last Admin: 02/16/18 17:09 Dose: 50 mls/hr Ondansetron HCl (Zofran) 4 mg IVPUSH Q4HR PRN PRN Reason: Nausea/Vomiting Last Admin: 02/16/18 07:14 Dose: 4 mg Potassium Chloride (Pharmacy To Dose - Potassium Replacement) 0 dose .XX ASDIRECTED [facility] Sodium Chloride (Saline Flush) 10 ml FLUSH ASDIRECTED PRN PRN Reason: Keep Vein Open Last Admin: 02/15/18 09:57 Dose: 10 ml Discontinued Medications Famotidine (Pepcid) 20 mg IVPUSH BID [facility] Last Admin: 02/15/18 22:04 Dose: Not Given Sodium Chloride (Normal Saline) 1,000 mls @ 1,000 mls/hr IV ONETIME ONE Stop: 02/15/18 10:45 Last Admin: 02/15/18 09:58 Dose: 1,000 mls/hr Potassium Chloride 10 meq/ (Premix) 100 mls @ 100 mls/hr IV Q1H [facility] Stop: 02/15/18 15:29 Last Admin: 02/15/18 18:21 Dose: 100 mls/hr Magnesium Sulfate 2 gm/ Premix 50 mls @ 25 mls/hr IV ONETIME ONE Stop: 02/15/18 13:21 Last Admin: 02/15/18 11:50 Dose: 25 mls/hr Sodium Chloride (Normal Saline) 1,000 mls @ 1,000 mls/hr IV ONETIME ONE Stop: 02/15/18 12:21 Last Admin: 02/15/18 11:51 Dose: 1,000 mls/hr Sodium Chloride (Normal Saline) Confirm Administered Dose 1,000 mls @ as directed .ROUTE .STK-MED ONE Stop: 02/15/18 13:17 Last Admin: 02/15/18 14:09 Dose: Not Given Magnesium Sulfate 2 gm/ Premix 50 mls @ 25 mls/hr IV ONETIME ONE Stop: 02/15/18 19:59 Last Admin: 02/15/18 17:59 Dose: 25 mls/hr Potassium Chloride 10 meq/ (Premix) 100 mls @ 100 mls/hr IV ONETIME ONE Stop: 02/15/18 19:14 Last Admin: 02/15/18 18:23 Dose: Not Given Potassium Chloride (Klor-Con M20) 40 meq PO ONETIME ONE Stop: 02/15/18 11:22 Last Admin: 02/15/18 11:51 Dose: Not Given Potassium Chloride (Potassium Chloride Solution) 40 meq PO TIDMEALS [facility] Stop: 02/16/18 07:01 Last Admin: 02/15/18 18:24 Dose: Not Given Potassium Chloride (Potassium Chloride Solution) 40 meq PO TIDMEALS [facility] [place] Stop: 02/16/18 11:01 Last Admin: 02/16/18 12:51 Dose: Not Given - My Orders Last 24 Hours: My Active Orders 02/16/18 06:50 OVA & PARASITES BY IMMUNOASSAY [MREF] Stat 02/16/18 13:36 Consult to Dietary [Consult to Soft Mud Molder] [CONS] Routine 02/16/18 13:44 Sequential Compression Device [OM.PC] Routine 02/16/18 14:30 Potassium Rep Pharmacy to Dose [Pharmacy to Dose - Potassium Replacement] 0 dose .XX ASDIRECTED 02/16/18 15:00 Potassium Chloride [KCl 10 MEQ in Water 100 ML] 10 meq Premix Bag 1 bag IV Q2H 02/16/18 Dinner Soft Diet [DIET] 02/17/18 09:00 Benazepril [Lotensin] 20 mg PO DAILY hydroCHLOROthiazide 25 mg PO DAILY - Plan Plan:: Patient was seen and examined at bedside in concert with the medical student. The assessment and plans were discussed and agreed upon with me. Patient is unable to take oral potassium and therefore she will be switched to IV instead. Stool studies are still pending. H. pylori screening is negative. Will advance diet to soft, consult dietary, resume home medications, SCDs for DVT prophylaxis and encourage to ambulate as tolerated.
[2018-02-16] MEDS: Potassium Chloride 10 MEQ in Premix Bag 1 BAG IV SCH ×2 (15:36→17:09)
[2018-02-16] MEDS: Famotidine 20 MG/2 ML SDV IVPUSH SCH (22:35)
[2018-02-16] MEDS: HYDROCHLOROTHIAZIDE 25 MG PO SCH (23:03)
[2018-02-16] MEDS: BENAZEPRIL 20 MG PO SCH (23:03)
[2018-02-16] MEDS: DIPHENHYDRAMINE PO PRN (23:04)
[2018-02-16] MEDS: ACETAMINOPHEN PO PRN (23:04)
[2018-02-17] MEDS: Dicyclomine 10 MG Cap PO SCH ×4 (06:42→21:19)
[2018-02-17] MEDS ORDERED: Magnesium Sulfate/Water 2 GM in Premix Bag 1 BAG IV ONE (09:00)
[2018-02-17] MEDS: Loperamide 2 MG Cap PO PRN (09:47)
[2018-02-17] MEDS: Potassium Chloride 10 MEQ in Premix Bag 1 BAG IV SCH ×5 (10:01→16:42)
--- NOTE | 2018-02-17 10:53 | PCM.PN ---
<Elida Panda - Last Filed: 02/17/18 10:53> - General Info Date of Service: 02/17/18 Admission Dx/Problem (Free Text): Admission Diagnosis/Problem Admission Diagnosis/Problem Gastroenteritis Functional Status: Reports: Pain Controlled, Tolerating Diet, Ambulating, Urinating - Review of Systems General: Reports: No Symptoms. Denies: Fever, Weakness, Fatigue, Chills HEENT: Reports: No Symptoms. Denies: Headaches Pulmonary: Reports: No Symptoms. Denies: Shortness of Breath Cardiovascular: Reports: No Symptoms. Denies: Chest Pain Gastrointestinal: Reports: Diarrhea. Denies: Abdominal Pain, Flatus Genitourinary: Reports: No Symptoms Musculoskeletal: Reports: No Symptoms Skin: Reports: No Symptoms Neurological: Reports: No Symptoms Psychiatric: Reports: No Symptoms Systems Review Comment:: Patient states she is doing well. She had a partially formed stool this morning following breakfast. Her last stool prior to that was diarrhea yesterday at about noon. She denies all other symptoms including abdominal pain, flatulence, fever, and chills. She slept well through the night and had no issues. - Patient Data Vitals - Most Recent: Last Vital Signs Temp 98.4 F 02/17/18 07:55 Pulse 86 02/17/18 07:55 Resp 18 02/17/18 07:55 BP 129/91 H 02/17/18 07:55 Pulse Ox 91 L 02/17/18 07:55 Weight - Most Recent: 86.721 kg I&O - Last 24 Hours: Intake & Output 02/16/18 02/17/18 02/17/18 22:59 06:59 14:59 Intake Total 3172 1100 Balance 3172 1100 Lab Results Last 24 Hours: Laboratory Results - last 24 hr 02/17/18 02/17/18 Range/Units 06:50 06:50 WBC 10.75 H (3.98-10.04) K/mm3 RBC 4.26 (3.98-5.22) M/mm3 Hgb 11.7 (11.2-15.7) gm/L Hct 35.3 (34.1-44.9) % MCV 82.9 (79.4-94.8) fl MCH 27.5 (25.6-32.2) pg MCHC 33.1 (32.2-35.5) g/dl RDW Std Deviation 43.7 (36.4-46.3) fL Plt Count 311 (182-369) K/mm3 MPV 9.5 (9.4-12.3) fl Neut % (Auto) 78.5 H (34.0-71.1) % Lymph % (Auto) 5.5 L (19.3-51.7) % [place] % (Auto) 12.4 (4.7-12.5) % Eos % (Auto) 2.3 (0.7-5.8) Baso % (Auto) 0.1 (0.1-1.2) % Neut # (Auto) 8.44 H (1.56-6.13) K/mm3 Lymph # (Auto) 0.59 L (1.18-3.74) K/mm3 [place] # (Auto) 1.33 H (0.24-0.36) K/mm3 Eos # (Auto) 0.25 (0.04-0.36) K/mm3 Baso # (Auto) 0.01 (0.01-0.08) K/mm3 Manual Slide Review Abnormal smear Sodium 140 (136-145) mEq/L Potassium 3.2 L (3.5-5.1) mEq/L Chloride 105 (98-107) mEq/L Carbon Dioxide 26 (21-32) mEq/L Anion Gap 12.2 (5-15) BUN 6 L (7-18) mg/dL Creatinine 0.7 (0.55-1.02) mg/dL Est Cr Clr Drug Dosing 54.08 mL/min Estimated GFR (MDRD) > 60 (>60) mL/min BUN/Creatinine Ratio 8.6 L (14-18) Glucose 101 (83-115) mg/dL Calcium 8.4 L (8.5-10.1) mg/dL Magnesium 1.6 L (1.8-2.4) mg/dl C-Reactive Protein 15.6 H* (<1.0) mg/dL Gera Results Last 24 Hours: Microbiology 02/16/18 06:50 Shiga Toxin I - Final Stool / Feces NEGATIVE FOR SHIGA TOXIN 1 Shiga Toxin II - Final NEGATIVE FOR SHIGA TOXIN 2 02/15/18 11:26 Urine Culture - Final Urine, Clean Catch MIXED CONCHITA SUGGESTIVE OF CONTAMINATION. 02/15/18 15:20 Aerobic Blood Culture - Preliminary Blood NO GROWTH AFTER 1 DAY Anaerobic Blood Culture - Preliminary NO GROWTH AFTER 1 DAY 02/16/18 06:50 Helicobacter pylori Antigen - Final Stool / Feces - Stool, Formed NEGATIVE H. PYLORI AG Med Orders - Current: Current Medications Acetaminophen (Tylenol) 650 mg PO Q4H PRN PRN Reason: Pain/Fever Last Admin: 02/16/18 00:25 Dose: 650 mg Benazepril HCl (Lotensin) 20 mg PO BEDTIME EDITH Last Admin: 02/16/18 23:03 Dose: 20 mg Bismuth Subsalicylate (Pepto Bismol) 15 ml PO Q6H PRN PRN Reason: Diarrhea Dicyclomine HCl (Bentyl) 10 mg PO QIDACANDBED [facility] Last Admin: 02/17/18 10:01 Dose: 10 mg Famotidine (Pepcid) 20 mg IVPUSH BEDTIME [facility] Last Admin: 02/16/18 22:35 Dose: 20 mg Hydralazine HCl (Apresoline) 20 mg IVPUSH Q6H PRN PRN Reason: Hypertension Hydrochlorothiazide (Hydrochlorothiazide) 25 mg PO BEDTIME [facility] Last Admin: 02/16/18 23:03 Dose: 25 mg Magnesium Sulfate 2 gm/ Premix 50 mls @ 25 mls/hr IV ONETIME ONE Stop: 02/17/18 10:59 Last Admin: 02/17/18 09:43 Dose: 25 mls/hr Potassium Chloride 10 meq/ (Premix) 100 mls @ 100 mls/hr IV Q1H EDITH Stop: 02/17/18 15:59 Last Admin: 02/17/18 10:01 Dose: 100 mls/hr Loperamide HCl (Imodium) 2 mg PO Q6H PRN PRN Reason: Diarrhea Last Admin: 02/17/18 09:47 Dose: 2 mg Magnesium Sulfate (Pharmacy To Dose - Magnesium Replacement) 0 dose .XX ASDIRECTED PRN PRN Reason: RX TO WATCH MAG Nf Med Each ( Acetaminophen/Diphenhydramine 500- 25mg 1 Tab)*Pt Own Med* 1 tab PO BEDTIME PRN PRN Reason: Sleep Last Admin: 02/16/18 23:04 Dose: 1 tab Ondansetron HCl (Zofran) 4 mg IVPUSH Q4HR PRN PRN Reason: Nausea/Vomiting Last Admin: 02/16/18 07:14 Dose: 4 mg Potassium Chloride (Pharmacy To Dose - Potassium Replacement) 0 dose .XX ASDIRECTED [facility] Sodium Chloride (Saline Flush) 10 ml FLUSH ASDIRECTED PRN PRN Reason: Keep Vein Open Last Admin: 02/15/18 09:57 Dose: 10 ml Discontinued Medications Famotidine (Pepcid) 20 mg IVPUSH BID [facility] Last Admin: 02/15/18 22:04 Dose: Not Given Sodium Chloride (Normal Saline) 1,000 mls @ 1,000 mls/hr IV ONETIME ONE Stop: 02/15/18 10:45 Last Admin: 02/15/18 09:58 Dose: 1,000 mls/hr Potassium Chloride 10 meq/ (Premix) 100 mls @ 100 mls/hr IV Q1H [facility] Stop: 02/15/18 15:29 Last Admin: 02/15/18 18:21 Dose: 100 mls/hr Magnesium Sulfate 2 gm/ Premix 50 mls @ 25 mls/hr IV ONETIME ONE Stop: 02/15/18 13:21 Last Admin: 02/15/18 11:50 Dose: 25 mls/hr Sodium Chloride (Normal Saline) 1,000 mls @ 1,000 mls/hr IV ONETIME ONE Stop: 02/15/18 12:21 Last Admin: 02/15/18 11:51 Dose: 1,000 mls/hr Sodium Chloride (Normal Saline) Confirm Administered Dose 1,000 mls @ as directed .ROUTE .STK-MED ONE Stop: 02/15/18 13:17 Last Admin: 02/15/18 14:09 Dose: Not Given Sodium Chloride (Normal Saline) 1,000 mls @ 150 mls/hr IV ASDIRECTED [facility] Last Admin: 02/16/18 16:42 Dose: 150 mls/hr Magnesium Sulfate 2 gm/ Premix 50 mls @ 25 mls/hr IV ONETIME ONE Stop: 02/15/18 19:59 Last Admin: 02/15/18 17:59 Dose: 25 mls/hr Potassium Chloride 10 meq/ (Premix) 100 mls @ 100 mls/hr IV ONETIME ONE Stop: 02/15/18 19:14 Last Admin: 02/15/18 18:23 Dose: Not Given Potassium Chloride 10 meq/ (Premix) 100 mls @ 50 mls/hr IV Q2H [facility] Stop: 02/16/18 18:59 Last Admin: 02/16/18 17:09 Dose: 50 mls/hr Potassium Chloride (Klor-Con M20) 40 meq PO ONETIME ONE Stop: 02/15/18 11:22 Last Admin: 02/15/18 11:51 Dose: Not Given Potassium Chloride (Potassium Chloride Solution) 40 meq PO TIDMEALS [facility] Stop: 02/16/18 07:01 Last Admin: 02/15/18 18:24 Dose: Not Given Potassium Chloride (Potassium Chloride Solution) 40 meq PO TIDMEALS [facility] Stop: 02/16/18 11:01 Last Admin: 02/16/18 12:51 Dose: Not Given - Exam General: Alert, Oriented, Cooperative, No Acute Distress HEENT: Pupils Equal, Pupils Reactive, EOMI, Mucous Membr. Moist/[place] Neck: Supple Lungs: Clear to Auscultation, Normal Respiratory Effort Cardiovascular: Regular Rate, Regular Rhythm GI/Abdominal Exam: Normal Bowel Sounds, Soft, Non-Tender (Female) Exam: Deferred Back Exam: Normal Inspection, Full Range of Motion Extremities: Normal Inspection, Normal Range of Motion, Non-Tender Peripheral Pulses: 2+: Radial (L), Radial (R), Posterior Tibial (L), Posterior Tibial (R) Skin: Warm, Dry, Intact Neurological: No New Focal Deficit Psy/Mental Status: Alert, Normal Affect, Normal Mood Physical Findings Comments:: Patient appears comfortable and in no acute distress. She is pleasant and cooperative. There is no abdominal tenderness upon palpation. No other findings on physical exam. - Problem List & Annotations (1) Diarrhea SNOMED Code(s): 15654957 Code(s): R19.7 - DIARRHEA, UNSPECIFIED Status: Acute Current Visit: Yes Qualifiers: Diarrhea type: presumed infectious Qualified Code(s): R19.7 - Diarrhea, unspecified (2) Hypokalemia SNOMED Code(s): 97499428 Code(s): E87.6 - HYPOKALEMIA Status: Acute Current Visit: Yes (3) Hypomagnesemia SNOMED Code(s): 785305710 Code(s): E83.42 - HYPOMAGNESEMIA Status: Acute Current Visit: Yes - Problem List Review Problem List Initiated/Reviewed/Updated: Yes - Plan Plan:: Acute gastroenteritis, improving * Consistent with presentation of diarrhea, abdominal pain, fever * No sick contact * Recent travel to [place] * History of IBS * Likely 2/2 to viral infection exacerbated by existing IBS * Negative for H. pylori * Negative for shiga toxin * Stool ova/parasites pending * WBC elevated at 15.98 on admission; now decreased to 10.75 * CRP elevated at 21.4; now improved to 15.6 * Management * IVF * Advance diet as tolerated * Continue supportive care Electrolyte abnormalities * 2/2 to diarrhea; lack of dietary intake * Potassium 2.5 --> 3.4 --> 3.2 * Magnesium 1.5 --> 2.0 --> 1.6 * Continue electrolyte replacement prn * IV potassium (unable to take oral potassium) OBS admission * DVT prophylaxis - SCDs, encourage ambulation * Resume home medications * Consult PT/OT/CM/dietary Code status: DNR/DNI Elida Panda, MS-3. Dr. Stock has examined the patient and reviewed the note. <Gus Stock T - Last Filed: 02/17/18 12:17> - Patient Data Vitals - Most Recent: Last Vital Signs Temp 36.9 C 02/17/18 07:55 Pulse 86 02/17/18 07:55 Resp 18 02/17/18 07:55 BP 129/91 H 02/17/18 07:55 Pulse Ox 91 L 02/17/18 07:55 I&O - Last 24 Hours: Intake & Output 02/16/18 02/17/18 02/17/18 22:59 06:59 14:59 Intake Total 3172 1100 240 Balance 3172 1100 240 Lab Results Last 24 Hours: Laboratory Results - last 24 hr 02/17/18 02/17/18 Range/Units 06:50 06:50 WBC 10.75 H (3.98-10.04) K/mm3 RBC 4.26 (3.98-5.22) M/mm3 Hgb 11.7 (11.2-15.7) gm/L Hct 35.3 (34.1-44.9) % MCV 82.9 (79.4-94.8) fl MCH 27.5 (25.6-32.2) pg MCHC 33.1 (32.2-35.5) g/dl RDW Std Deviation 43.7 (36.4-46.3) fL Plt Count 311 (182-369) K/mm3 MPV 9.5 (9.4-12.3) fl Neut % (Auto) 78.5 H (34.0-71.1) % Lymph % (Auto) 5.5 L (19.3-51.7) % [place] % (Auto) 12.4 (4.7-12.5) % Eos % (Auto) 2.3 (0.7-5.8) Baso % (Auto) 0.1 (0.1-1.2) % Neut # (Auto) 8.44 H (1.56-6.13) K/mm3 Lymph # (Auto) 0.59 L (1.18-3.74) K/mm3 [place] # (Auto) 1.33 H (0.24-0.36) K/mm3 Eos # (Auto) 0.25 (0.04-0.36) K/mm3 Baso # (Auto) 0.01 (0.01-0.08) K/mm3 Manual Slide Review Abnormal smear Sodium 140 (136-145) mEq/L Potassium 3.2 L (3.5-5.1) mEq/L Chloride 105 (98-107) mEq/L Carbon Dioxide 26 (21-32) mEq/L Anion Gap 12.2 (5-15) BUN 6 L (7-18) mg/dL Creatinine 0.7 (0.55-1.02) mg/dL Est Cr Clr Drug Dosing 54.08 mL/min Estimated GFR (MDRD) > 60 (>60) mL/min BUN/Creatinine Ratio 8.6 L (14-18) Glucose 101 (83-115) mg/dL Calcium 8.4 L (8.5-10.1) mg/dL Magnesium 1.6 L (1.8-2.4) mg/dl C-Reactive Protein 15.6 H* (<1.0) mg/dL Gera Results Last 24 Hours: Microbiology 02/16/18 06:50 Shiga Toxin I - Final Stool / Feces NEGATIVE FOR SHIGA TOXIN 1 Shiga Toxin II - Final NEGATIVE FOR SHIGA TOXIN 2 02/15/18 11:26 Urine Culture - Final Urine, Clean Catch MIXED [place] SUGGESTIVE OF CONTAMINATION. 02/15/18 15:20 Aerobic Blood Culture - Preliminary Blood NO GROWTH AFTER 1 DAY Anaerobic Blood Culture - Preliminary NO GROWTH AFTER 1 DAY 02/16/18 06:50 Helicobacter pylori Antigen - Final Stool / Feces - Stool, Formed NEGATIVE H. PYLORI AG Med Orders - Current: Current Medications Acetaminophen (Tylenol) 650 mg PO Q4H PRN PRN Reason: Pain/Fever Last Admin: 02/16/18 00:25 Dose: 650 mg Benazepril HCl (Lotensin) 20 mg PO BEDTIME EDITH Last Admin: 02/16/18 23:03 Dose: 20 mg Bismuth Subsalicylate (Pepto Bismol) 15 ml PO Q6H PRN PRN Reason: Diarrhea Dicyclomine HCl (Bentyl) 10 mg PO QIDACANDBED [facility] Last Admin: 02/17/18 10:01 Dose: 10 mg Famotidine (Pepcid) 20 mg IVPUSH BEDTIME [facility] Last Admin: 02/16/18 22:35 Dose: 20 mg Hydralazine HCl (Apresoline) 20 mg IVPUSH Q6H PRN PRN Reason: Hypertension Hydrochlorothiazide (Hydrochlorothiazide) 25 mg PO BEDTIME [facility] Last Admin: 02/16/18 23:03 Dose: 25 mg Potassium Chloride 10 meq/ (Premix) 100 mls @ 100 mls/hr IV Q1H [facility] Stop: 02/17/18 15:59 Last Admin: 02/17/18 11:00 Dose: 100 mls/hr Sodium Chloride (Normal Saline) 1,000 mls @ 75 mls/hr IV ASDIRECTED EDITH Last Admin: 02/17/18 10:58 Dose: 75 mls/hr Loperamide HCl (Imodium) 2 mg PO Q6H PRN PRN Reason: Diarrhea Last Admin: 02/17/18 09:47 Dose: 2 mg Magnesium Sulfate (Pharmacy To Dose - Magnesium Replacement) 0 dose .XX ASDIRECTED PRN PRN Reason: RX TO WATCH MAG Nf Med Each ( Acetaminophen/Diphenhydramine 500- 25mg 1 Tab)*Pt Own Med* 1 tab PO BEDTIME PRN PRN Reason: Sleep Last Admin: 02/16/18 23:04 Dose: 1 tab Ondansetron HCl (Zofran) 4 mg IVPUSH Q4HR PRN PRN Reason: Nausea/Vomiting Last Admin: 02/16/18 07:14 Dose: 4 mg Potassium Chloride (Pharmacy To Dose - Potassium Replacement) 0 dose .XX ASDIRECTED [facility] Sodium Chloride (Saline Flush) 10 ml FLUSH ASDIRECTED PRN PRN Reason: Keep Vein Open Last Admin: 02/15/18 09:57 Dose: 10 ml Discontinued Medications Famotidine (Pepcid) 20 mg IVPUSH BID [facility] Last Admin: 02/15/18 22:04 Dose: Not Given Sodium Chloride (Normal Saline) 1,000 mls @ 1,000 mls/hr IV ONETIME ONE Stop: 02/15/18 10:45 Last Admin: 02/15/18 09:58 Dose: 1,000 mls/hr Potassium Chloride 10 meq/ (Premix) 100 mls @ 100 mls/hr IV Q1H [facility] Stop: 02/15/18 15:29 Last Admin: 02/15/18 18:21 Dose: 100 mls/hr Magnesium Sulfate 2 gm/ Premix 50 mls @ 25 mls/hr IV ONETIME ONE Stop: 02/15/18 13:21 Last Admin: 02/15/18 11:50 Dose: 25 mls/hr Sodium Chloride (Normal Saline) 1,000 mls @ 1,000 mls/hr IV ONETIME ONE Stop: 02/15/18 12:21 Last Admin: 02/15/18 11:51 Dose: 1,000 mls/hr Sodium Chloride (Normal Saline) Confirm Administered Dose 1,000 mls @ as directed .ROUTE .STK-MED ONE Stop: 02/15/18 13:17 Last Admin: 02/15/18 14:09 Dose: Not Given Sodium Chloride (Normal Saline) 1,000 mls @ 150 mls/hr IV ASDIRECTED [facility] Last Admin: 02/16/18 16:42 Dose: 150 mls/hr Magnesium Sulfate 2 gm/ Premix 50 mls @ 25 mls/hr IV ONETIME ONE Stop: 02/15/18 19:59 Last Admin: 02/15/18 17:59 Dose: 25 mls/hr Potassium Chloride 10 meq/ (Premix) 100 mls @ 100 mls/hr IV ONETIME ONE Stop: 02/15/18 19:14 Last Admin: 02/15/18 18:23 Dose: Not Given Potassium Chloride 10 meq/ (Premix) 100 mls @ 50 mls/hr IV Q2H [facility] Stop: 02/16/18 18:59 Last Admin: 02/16/18 17:09 Dose: 50 mls/hr Magnesium Sulfate 2 gm/ Premix 50 mls @ 25 mls/hr IV ONETIME ONE Stop: 02/17/18 10:59 Last Admin: 02/17/18 09:43 Dose: 25 mls/hr Sodium Chloride (Normal Saline) 1,000 mls @ 75 mls/hr IV ASDIRECTED [facility] Potassium Chloride (Klor-Con M20) 40 meq PO ONETIME ONE Stop: 02/15/18 11:22 Last Admin: 02/15/18 11:51 Dose: Not Given Potassium Chloride (Potassium Chloride Solution) 40 meq PO TIDMEALS [facility] Stop: 02/16/18 07:01 Last Admin: 02/15/18 18:24 Dose: Not Given Potassium Chloride (Potassium Chloride Solution) 40 meq PO TIDMEALS [facility] Stop: 02/16/18 11:01 Last Admin: 02/16/18 12:51 Dose: Not Given - My Orders Last 24 Hours: My Active Orders 02/16/18 13:36 Consult to Dietary [Consult to Optical Systems Engineer] [CONS] Routine 02/16/18 13:44 Sequential Compression Device [OM.PC] Routine 02/16/18 14:30 Potassium Rep Pharmacy to Dose [Pharmacy to Dose - Potassium Replacement] 0 dose .XX ASDIRECTED 02/16/18 19:08 Loperamide [Imodium] 2 mg PO Q6H PRN 02/16/18 19:53 Acetaminophen/Diphenhydramine 1 tab PO BEDTIME PRN 02/16/18 23:00 Benazepril [Lotensin] 20 mg PO BEDTIME hydroCHLOROthiazide 25 mg PO BEDTIME 02/16/18 Dinner Soft Diet [DIET] 02/17/18 08:48 Magnesium Rep Pharmacy to Dose [Pharmacy to Dose - Magnesium Replacement] 0 dose .XX ASDIRECTED PRN 02/17/18 11:00 Potassium Chloride [KCl 10 MEQ in Water 100 ML] 10 meq Premix Bag 1 bag IV Q1H Sodium Chloride 0.9% [Normal Saline] 1,000 ml IV ASDIRECTED - Plan Plan:: Patient was seen and examined at bedside in concert with the medical student. The assessment and plans were discussed and agreed upon with me. Patient reports 1 semi formed bowl movement his AM but no new complaints. Her K remains low and now Mg is level is slightly low at 1.6. Her WBC and CRP continue to trend down. We'll maintain carry supportive care.
[2018-02-17] MEDS ORDERED: Sodium Chloride 0.9% 1,000 ML IV SCH ×2 (11:00)
[2018-02-17] MEDS ORDERED: Potassium Chloride 100 ML IV ONE (17:00)
[2018-02-17] MEDS: BENAZEPRIL 20 MG PO SCH (21:19)
[2018-02-17] MEDS: Famotidine 20 MG/2 ML SDV IVPUSH SCH (21:20)
[2018-02-17] MEDS: HYDROCHLOROTHIAZIDE 25 MG PO SCH (21:20)
[2018-02-17] MEDS: ACETAMINOPHEN PO PRN (21:21)
[2018-02-17] MEDS: DIPHENHYDRAMINE PO PRN (21:21)
[2018-02-18] MEDS: Dicyclomine 10 MG Cap PO SCH ×4 (05:59→21:01)
[2018-02-18] MEDS ORDERED: DIPHENHYDRAMINE PO PRN (08:32)
[2018-02-18] MEDS ORDERED: ACETAMINOPHEN PO PRN (08:32)
[2018-02-18] MEDS ORDERED: Magnesium Sulfate/Water 4 GM in Premix Bag 1 BAG IV ONE (09:00)
[2018-02-18] MEDS ORDERED: Diltiazem 50 MG/10 ML SDV IVPUSH ONE (09:00)
[2018-02-18] MEDS ORDERED: Sodium Chloride 0.9% 500 ML IV SCH (09:15)
[2018-02-18] MEDS: Potassium Chloride 10 MEQ in Premix Bag 1 BAG IV SCH ×3 (09:29→13:08)
--- NOTE | 2018-02-18 09:34 | PCM.PN ---
<Elida Panda - Last Filed: 02/18/18 11:25> - General Info Date of Service: 02/18/18 Admission Dx/Problem (Free Text): Admission Diagnosis/Problem Admission Diagnosis/Problem Gastroenteritis Functional Status: Reports: Pain Controlled, Tolerating Diet, Ambulating, Urinating - Review of Systems General: Reports: No Symptoms HEENT: Reports: No Symptoms Pulmonary: Reports: No Symptoms Cardiovascular: Reports: Other (tachycardia) Gastrointestinal: Reports: Other (loose stools) Genitourinary: Reports: No Symptoms Musculoskeletal: Reports: No Symptoms Skin: Reports: No Symptoms Neurological: Reports: No Symptoms Psychiatric: Reports: No Symptoms Systems Review Comment:: Patient is having an episode of tachycardia this AM. She denies chest pain and shortness of breath though she can feel that her heart is racing. She says that she experiences this occasionally. Patient reports a low grade fever last night. She woke up to urinate but otherwise slept well. She has had no recent episodes of diarrhea though she has had multiple loose stools. She says this is not unusual with her IBS. - Patient Data Vitals - Most Recent: Last Vital Signs Temp 98.4 F 02/18/18 07:39 Pulse 160 H 02/18/18 09:06 Resp 16 02/18/18 07:39 BP 145/84 H 02/18/18 09:06 Pulse Ox 92 L 02/18/18 07:40 Weight - Most Recent: 85.474 kg I&O - Last 24 Hours: Intake & Output 02/17/18 02/18/18 02/18/18 22:59 06:59 14:59 Intake Total 2373 400 Output Total 2400 Balance 2373 -2000 Lab Results Last 24 Hours: Laboratory Results - last 24 hr 02/18/18 02/18/18 Range/Units 05:35 05:35 WBC 10.59 H (3.98-10.04) K/mm3 RBC 4.45 (3.98-5.22) M/mm3 Hgb 12.2 (11.2-15.7) gm/L Hct 37.2 (34.1-44.9) % MCV 83.6 (79.4-94.8) fl MCH 27.4 (25.6-32.2) pg MCHC 32.8 (32.2-35.5) g/dl RDW Std Deviation 43.6 (36.4-46.3) fL Plt Count 371 H (182-369) K/mm3 MPV 9.2 L (9.4-12.3) fl Neut % (Auto) 75.8 H (34.0-71.1) % Lymph % (Auto) 6.9 L (19.3-51.7) % [place] % (Auto) 12.7 H (4.7-12.5) % Eos % (Auto) 3.4 (0.7-5.8) Baso % (Auto) 0.3 (0.1-1.2) % Neut # (Auto) 8.02 H (1.56-6.13) K/mm3 Lymph # (Auto) 0.73 L (1.18-3.74) K/mm3 [place] # (Auto) 1.35 H (0.24-0.36) K/mm3 Eos # (Auto) 0.36 (0.04-0.36) K/mm3 Baso # (Auto) 0.03 (0.01-0.08) K/mm3 Manual Slide Review Abnormal smear Sodium 136 (136-145) mEq/L Potassium 3.5 (3.5-5.1) mEq/L Chloride 99 (98-107) mEq/L Carbon Dioxide 30 (21-32) mEq/L Anion Gap 10.5 (5-15) BUN 5 L (7-18) mg/dL Creatinine 0.8 (0.55-1.02) mg/dL Est Cr Clr Drug Dosing 47.32 mL/min Estimated GFR (MDRD) > 60 (>60) mL/min BUN/Creatinine Ratio 6.3 L (14-18) Glucose 90 (83-115) mg/dL Calcium 8.6 (8.5-10.1) mg/dL Magnesium 1.6 L (1.8-2.4) mg/dl C-Reactive Protein 14.8 H* (<1.0) mg/dL Gera Results Last 24 Hours: Microbiology 02/16/18 06:50 Cryptosporidium/Giardia - Final Stool / Feces 02/15/18 15:20 Aerobic Blood Culture - Preliminary Blood NO GROWTH AFTER 2 DAYS Anaerobic Blood Culture - Preliminary NO GROWTH AFTER 2 DAYS 02/16/18 06:50 Shiga Toxin I - Final Stool / Feces NEGATIVE FOR SHIGA TOXIN 1 Shiga Toxin II - Final NEGATIVE FOR SHIGA TOXIN 2 02/15/18 11:26 Urine Culture - Final Urine, Clean Catch MIXED CONCHITA SUGGESTIVE OF CONTAMINATION. Med Orders - Current: Current Medications Acetaminophen (Tylenol) 650 mg PO Q4H PRN PRN Reason: Pain/Fever Last Admin: 02/16/18 00:25 Dose: 650 mg Benazepril HCl (Lotensin) 20 mg PO BEDTIME [facility] Bismuth Subsalicylate (Pepto Bismol) 15 ml PO Q6H PRN PRN Reason: Diarrhea Dicyclomine HCl (Bentyl) 10 mg PO QIDACANDBED [facility] Last Admin: 02/18/18 05:59 Dose: 10 mg Famotidine (Pepcid) 20 mg IVPUSH BEDTIME [facility] Last Admin: 02/17/18 21:20 Dose: 20 mg Hydralazine HCl (Apresoline) 20 mg IVPUSH Q6H PRN PRN Reason: Hypertension Hydrochlorothiazide (Hydrochlorothiazide) 25 mg PO BEDTIME [facility] Magnesium Sulfate 4 gm/ Premix 100 mls @ 25 mls/hr IV ONETIME ONE Stop: 02/18/18 12:59 Last Admin: 02/18/18 09:21 Dose: 25 mls/hr Potassium Chloride 10 meq/ (Premix) 100 mls @ 100 mls/hr IV Q1H [facility] Stop: 02/18/18 11:59 Sodium Chloride (Normal Saline) 500 mls @ 75 mls/hr IV ASDIRECTED [facility] Stop: 02/18/18 15:00 Last Admin: 02/18/18 09:21 Dose: 75 mls/hr Loperamide HCl (Imodium) 2 mg PO Q6H PRN PRN Reason: Diarrhea Last Admin: 02/17/18 09:47 Dose: 2 mg Magnesium Sulfate (Pharmacy To Dose - Magnesium Replacement) 0 dose .XX ASDIRECTED PRN PRN Reason: RX TO WATCH MAG Ondansetron HCl (Zofran) 4 mg IVPUSH Q4HR PRN PRN Reason: Nausea/Vomiting Last Admin: 02/16/18 07:14 Dose: 4 mg Acetaminophen/Diphenhydramine 500- 25mg 1 Tab*Pt Own Med* 1 each PO BEDTIME PRN PRN Reason: Sleep Potassium Chloride (Pharmacy To Dose - Potassium Replacement) 0 dose .XX ASDIRECTED [facility] Sodium Chloride (Saline Flush) 10 ml FLUSH ASDIRECTED PRN PRN Reason: Keep Vein Open Last Admin: 02/15/18 09:57 Dose: 10 ml Discontinued Medications Benazepril HCl (Lotensin) 20 mg PO BEDTIME [facility] Last Admin: 02/17/18 21:19 Dose: 20 mg Diltiazem HCl (Cardizem) 10 mg IVPUSH ONETIME ONE Stop: 02/18/18 09:01 Last Admin: 02/18/18 09:06 Dose: 10 mg Famotidine (Pepcid) 20 mg IVPUSH BID [facility] Last Admin: 02/15/18 22:04 Dose: Not Given Hydrochlorothiazide (Hydrochlorothiazide) 25 mg PO BEDTIME [facility] Last Admin: 02/17/18 21:20 Dose: 25 mg Sodium Chloride (Normal Saline) 1,000 mls @ 1,000 mls/hr IV ONETIME ONE Stop: 02/15/18 10:45 Last Admin: 02/15/18 09:58 Dose: 1,000 mls/hr Potassium Chloride 10 meq/ (Premix) 100 mls @ 100 mls/hr IV Q1H [facility] Stop: 02/15/18 15:29 Last Admin: 02/15/18 18:21 Dose: 100 mls/hr Magnesium Sulfate 2 gm/ Premix 50 mls @ 25 mls/hr IV ONETIME ONE Stop: 02/15/18 13:21 Last Admin: 02/15/18 11:50 Dose: 25 mls/hr Sodium Chloride (Normal Saline) 1,000 mls @ 1,000 mls/hr IV ONETIME ONE Stop: 02/15/18 12:21 Last Admin: 02/15/18 11:51 Dose: 1,000 mls/hr Sodium Chloride (Normal Saline) Confirm Administered Dose 1,000 mls @ as directed .ROUTE .STK-MED ONE Stop: 02/15/18 13:17 Last Admin: 02/15/18 14:09 Dose: Not Given Sodium Chloride (Normal Saline) 1,000 mls @ 150 mls/hr IV ASDIRECTED [facility] Last Admin: 02/16/18 16:42 Dose: 150 mls/hr Magnesium Sulfate 2 gm/ Premix 50 mls @ 25 mls/hr IV ONETIME ONE Stop: 02/15/18 19:59 Last Admin: 02/15/18 17:59 Dose: 25 mls/hr Potassium Chloride 10 meq/ (Premix) 100 mls @ 100 mls/hr IV ONETIME ONE Stop: 02/15/18 19:14 Last Admin: 02/15/18 18:23 Dose: Not Given Potassium Chloride 10 meq/ (Premix) 100 mls @ 50 mls/hr IV Q2H [facility] Stop: 02/16/18 18:59 Last Admin: 02/16/18 17:09 Dose: 50 mls/hr Magnesium Sulfate 2 gm/ Premix 50 mls @ 25 mls/hr IV ONETIME ONE Stop: 02/17/18 10:59 Last Admin: 02/17/18 09:43 Dose: 25 mls/hr Potassium Chloride 10 meq/ (Premix) 100 mls @ 100 mls/hr IV Q1H [facility] Stop: 02/17/18 15:59 Last Admin: 02/17/18 16:42 Dose: 60 mls/hr Sodium Chloride (Normal Saline) 1,000 mls @ 75 mls/hr IV ASDIRECTED [facility] Sodium Chloride (Normal Saline) 1,000 mls @ 75 mls/hr IV ASDIRECTED [facility] Last Admin: 02/17/18 10:58 Dose: 75 mls/hr Potassium Chloride (Kcl 10 Meq In Water 100 Ml) 100 mls @ 50 mls/hr IV ONETIME ONE Stop: 02/17/18 18:59 Last Admin: 02/17/18 16:44 Dose: Not Given Nf Med Each ( Acetaminophen/Diphenhydramine 500- 25mg 1 Tab)*Pt Own Med* 1 tab PO BEDTIME PRN PRN Reason: Sleep Last Admin: 02/17/18 21:21 Dose: 1 tab Potassium Chloride (Klor-Con M20) 40 meq PO ONETIME ONE Stop: 02/15/18 11:22 Last Admin: 02/15/18 11:51 Dose: Not Given Potassium Chloride (Potassium Chloride Solution) 40 meq PO TIDMEALS [facility] Stop: 02/16/18 07:01 Last Admin: 02/15/18 18:24 Dose: Not Given Potassium Chloride (Potassium Chloride Solution) 40 meq PO TIDMEALS [facility] Stop: 02/16/18 11:01 Last Admin: 10/01/18 12:51 Dose: Not Given - Exam General: Alert, Oriented, Cooperative, No Acute Distress HEENT: Pupils Equal, Pupils Reactive, EOMI, Mucous Membr. Moist/[place] Neck: Supple Lungs: Clear to Auscultation, Normal Respiratory Effort Cardiovascular: Irregular Rhythm, Tachycardia GI/Abdominal Exam: Normal Bowel Sounds, Soft, Non-Tender (Female) Exam: Deferred Back Exam: Normal Inspection, Full Range of Motion Extremities: Normal Inspection, Normal Range of Motion, Non-Tender, No Pedal Edema Peripheral Pulses: 2+: Radial (L), Radial (R), Posterior Tibial (L), Posterior Tibial (R) Skin: Warm, Dry, Intact Neurological: No New Focal Deficit Psy/Mental Status: Alert, Normal Affect, Normal Mood Physical Findings Comments:: Patient appears comfortable and in no acute distress. Normal bowel sounds are auscultated and there is no abdominal tenderness upon palpation. Tachycardia on telemetry was noted this AM. Heart rate was in the 160s. Upon exam, tachycardia with irregular rate and rhythm is noted. - Problem List & Annotations (1) Atrial fibrillation with RVR SNOMED Code(s): 910895736795736 Code(s): I48.91 - UNSPECIFIED ATRIAL FIBRILLATION Status: Acute Current Visit: Yes (2) Diarrhea SNOMED Code(s): 83984237 Code(s): R19.7 - DIARRHEA, UNSPECIFIED Status: Acute Current Visit: Yes Qualifiers: Diarrhea type: presumed infectious Qualified Code(s): R19.7 - Diarrhea, unspecified (3) Hypokalemia SNOMED Code(s): 17725134 Code(s): E87.6 - HYPOKALEMIA Status: Acute Current Visit: Yes (4) Hypomagnesemia SNOMED Code(s): 470384560 Code(s): E83.42 - HYPOMAGNESEMIA Status: Acute Current Visit: Yes - Problem List Review Problem List Initiated/Reviewed/Updated: Yes - Plan Plan:: Atrial fibrillation, rapid ventricular response * Tachycardia in 160s noted on telemetry this AM * Patient denies chest pain but can tell that her heart is racing - states this happens to her occasionally * Evaluation * EKG orderd - shows A.fib RVR * Arrange for 2D Echo * CHADVAS score > 2 warrants anticoagulation therapy * Management * Cardizem drip started * Move patient to ICU * Telemetry monitoring * Anticoagulant therapy discussed with patient; she would like to be on warfarin * Goal heart rate <100 bpm Acute gastroenteritis, improving * Consistent with presentation of diarrhea, abdominal pain, fever * No sick contact * Recent travel to [place] * History of IBS * Likely 2/2 to viral infection exacerbated by existing IBS * Negative for H. pylori * Negative for shiga toxin * Negative for cryptosporidium, giardia * WBC elevated at 15.98 on admission; now decreased to 10.59 * CRP elevated at 21.4; now improved to 14.8 * Management * IVF * Advance diet as tolerated * Continue supportive care Electrolyte abnormalities * 2/2 to diarrhea; lack of dietary intake * Potassium 2.5 --> 3.4 --> 3.2 --> 3.5 * Magnesium 1.5 --> 2.0 --> 1.6 --> 1.6 * Continue electrolyte replacement prn * IV potassium (unable to take oral potassium) OBS admission * DVT prophylaxis - SCDs, encourage ambulation * Resume home medications * Consult PT/OT/CM/dietary Code status: DNR/DNI Elida Panda, MS-3. Dr. Stock has examined the patient and reviewed the note. <Gus Stock T - Last Filed: 02/18/18 12:26> - Patient Data Vitals - Most Recent: Last Vital Signs Temp 37.2 C 02/18/18 10:00 Pulse 85 02/18/18 12:00 Resp 31 H 02/18/18 10:00 BP 130/64 02/18/18 12:00 Pulse Ox 92 L 02/18/18 11:00 I&O - Last 24 Hours: Intake & Output 02/17/18 02/18/18 02/18/18 22:59 06:59 14:59 Intake Total 2373 400 480 Output Total 2400 Balance 2373 -2000 480 Lab Results Last 24 Hours: Laboratory Results - last 24 hr 02/18/18 02/18/18 Range/Units 05:35 05:35 WBC 10.59 H (3.98-10.04) K/mm3 RBC 4.45 (3.98-5.22) M/mm3 Hgb 12.2 (11.2-15.7) gm/L Hct 37.2 (34.1-44.9) % MCV 83.6 (79.4-94.8) fl MCH 27.4 (25.6-32.2) pg MCHC 32.8 (32.2-35.5) g/dl RDW Std Deviation 43.6 (36.4-46.3) fL Plt Count 371 H (182-369) K/mm3 MPV 9.2 L (9.4-12.3) fl Neut % (Auto) 75.8 H (34.0-71.1) % Lymph % (Auto) 6.9 L (19.3-51.7) % [place] % (Auto) 12.7 H (4.7-12.5) % Eos % (Auto) 3.4 (0.7-5.8) Baso % (Auto) 0.3 (0.1-1.2) % Neut # (Auto) 8.02 H (1.56-6.13) K/mm3 Lymph # (Auto) 0.73 L (1.18-3.74) K/mm3 [place] # (Auto) 1.35 H (0.24-0.36) K/mm3 Eos # (Auto) 0.36 (0.04-0.36) K/mm3 Baso # (Auto) 0.03 (0.01-0.08) K/mm3 Manual Slide Review Abnormal smear Sodium 136 (136-145) mEq/L Potassium 3.5 (3.5-5.1) mEq/L Chloride 99 (98-107) mEq/L Carbon Dioxide 30 (21-32) mEq/L Anion Gap 10.5 (5-15) BUN 5 L (7-18) mg/dL Creatinine 0.8 (0.55-1.02) mg/dL Est Cr Clr Drug Dosing 47.32 mL/min Estimated GFR (MDRD) > 60 (>60) mL/min BUN/Creatinine Ratio 6.3 L (14-18) Glucose 90 (83-115) mg/dL Calcium 8.6 (8.5-10.1) mg/dL Magnesium 1.6 L (1.8-2.4) mg/dl C-Reactive Protein 14.8 H* (<1.0) mg/dL Gera Results Last 24 Hours: Microbiology 02/16/18 06:50 Stool Culture - Preliminary Stool / Feces Shiga Toxin I - Final NEGATIVE FOR SHIGA TOXIN 1 Shiga Toxin II - Final NEGATIVE FOR SHIGA TOXIN 2 02/16/18 06:50 Cryptosporidium/Giardia - Final Stool / Feces 02/15/18 15:20 Aerobic Blood Culture - Preliminary Blood NO GROWTH AFTER 2 DAYS Anaerobic Blood Culture - Preliminary NO GROWTH AFTER 2 DAYS 02/15/18 11:26 Urine Culture - Final Urine, Clean Catch MIXED CONCHITA SUGGESTIVE OF CONTAMINATION. Med Orders - Current: Current Medications Acetaminophen (Tylenol) 650 mg PO Q4H PRN PRN Reason: Pain/Fever Last Admin: 02/16/18 00:25 Dose: 650 mg Benazepril HCl (Lotensin) 20 mg PO BEDTIME [facility] Bismuth Subsalicylate (Pepto Bismol) 15 ml PO Q6H PRN PRN Reason: Diarrhea Dicyclomine HCl (Bentyl) 10 mg PO QIDACANDBED [facility] Last Admin: 02/18/18 11:08 Dose: 10 mg Enoxaparin Sodium (Lovenox) 85 mg SUBCUT Q12H [facility] Famotidine (Pepcid) 20 mg IVPUSH BEDTIME [facility] Last Admin: 02/17/18 21:20 Dose: 20 mg Hydralazine HCl (Apresoline) 20 mg IVPUSH Q6H PRN PRN Reason: Hypertension Hydrochlorothiazide (Hydrochlorothiazide) 25 mg PO BEDTIME [facility] Magnesium Sulfate 4 gm/ Premix 100 mls @ 25 mls/hr IV ONETIME ONE Stop: 02/18/18 12:59 Last Admin: 02/18/18 09:21 Dose: 25 mls/hr Sodium Chloride (Normal Saline) 500 mls @ 75 mls/hr IV ASDIRECTED [facility] Stop: 02/18/18 15:00 Last Admin: 02/18/18 09:21 Dose: 75 mls/hr Diltiazem HCl 125 mg/ Sodium (Chloride) 125 mls @ 5 mls/hr IV TITRATE [facility]ITH; Protocol Last Titration: 02/18/18 10:35 Dose: 2.5 mg/hr, 2.5 mls/hr Loperamide HCl (Imodium) 2 mg PO Q6H PRN PRN Reason: Diarrhea Last Admin: 02/17/18 09:47 Dose: 2 mg Magnesium Sulfate (Pharmacy To Dose - Magnesium Replacement) 0 dose .XX ASDIRECTED PRN PRN Reason: RX TO WATCH MAG Ondansetron HCl (Zofran) 4 mg IVPUSH Q4HR PRN PRN Reason: Nausea/Vomiting Last Admin: 02/16/18 07:14 Dose: 4 mg Acetaminophen/Diphenhydramine 500- 25mg 1 Tab*Pt Own Med* 1 each PO BEDTIME PRN PRN Reason: Sleep Potassium Chloride (Pharmacy To Dose - Potassium Replacement) 0 dose .XX ASDIRECTED [facility] Sodium Chloride (Saline Flush) 10 ml FLUSH ASDIRECTED PRN PRN Reason: Keep Vein Open Last Admin: 02/15/18 09:57 Dose: 10 ml Warfarin Sodium (Coumadin) 10 mg PO DAILY@0900 ONE Stop: 02/19/18 09:01 Warfarin Sodium (Pharmacy To Dose - Warfarin) 0 dose .XX ASDIRECTED PRN PRN Reason: RX TO DOSE WARFARIN Discontinued Medications Benazepril HCl (Lotensin) 20 mg PO BEDTIME [facility] Last Admin: 02/17/18 21:19 Dose: 20 mg Diltiazem HCl (Cardizem) 10 mg IVPUSH ONETIME ONE Stop: 02/18/18 09:01 Last Admin: 02/18/18 09:06 Dose: 10 mg Enoxaparin Sodium (Lovenox) 85 mg SUBCUT ONETIME ONE Stop: 02/18/18 11:33 Famotidine (Pepcid) 20 mg IVPUSH BID [facility] Last Admin: 02/15/18 22:04 Dose: Not Given Hydrochlorothiazide (Hydrochlorothiazide) 25 mg PO BEDTIME [facility] Last Admin: 02/17/18 21:20 Dose: 25 mg Sodium Chloride (Normal Saline) 1,000 mls @ 1,000 mls/hr IV ONETIME ONE Stop: 02/15/18 10:45 Last Admin: 02/15/18 09:58 Dose: 1,000 mls/hr Potassium Chloride 10 meq/ (Premix) 100 mls @ 100 mls/hr IV Q1H [facility] Stop: 02/15/18 15:29 Last Admin: 02/15/18 18:21 Dose: 100 mls/hr Magnesium Sulfate 2 gm/ Premix 50 mls @ 25 mls/hr IV ONETIME ONE Stop: 02/15/18 13:21 Last Admin: 02/15/18 11:50 Dose: 25 mls/hr Sodium Chloride (Normal Saline) 1,000 mls @ 1,000 mls/hr IV ONETIME ONE Stop: 02/15/18 12:21 Last Admin: 02/15/18 11:51 Dose: 1,000 mls/hr Sodium Chloride (Normal Saline) Confirm Administered Dose 1,000 mls @ as directed .ROUTE .STK-MED ONE Stop: 02/15/18 13:17 Last Admin: 02/15/18 14:09 Dose: Not Given Sodium Chloride (Normal Saline) 1,000 mls @ 150 mls/hr IV ASDIRECTED [facility] Last Admin: 02/16/18 16:42 Dose: 150 mls/hr Magnesium Sulfate 2 gm/ Premix 50 mls @ 25 mls/hr IV ONETIME ONE Stop: 02/15/18 19:59 Last Admin: 02/15/18 17:59 Dose: 25 mls/hr Potassium Chloride 10 meq/ (Premix) 100 mls @ 100 mls/hr IV ONETIME ONE Stop: 02/15/18 19:14 Last Admin: 02/15/18 18:23 Dose: Not Given Potassium Chloride 10 meq/ (Premix) 100 mls @ 50 mls/hr IV Q2H [facility] Stop: 02/16/18 18:59 Last Admin: 02/16/18 17:09 Dose: 50 mls/hr Magnesium Sulfate 2 gm/ Premix 50 mls @ 25 mls/hr IV ONETIME ONE Stop: 02/17/18 10:59 Last Admin: 02/17/18 09:43 Dose: 25 mls/hr Potassium Chloride 10 meq/ (Premix) 100 mls @ 100 mls/hr IV Q1H [facility] Stop: 02/17/18 15:59 Last Admin: 02/17/18 16:42 Dose: 60 mls/hr Sodium Chloride (Normal Saline) 1,000 mls @ 75 mls/hr IV ASDIRECTED [facility] Sodium Chloride (Normal Saline) 1,000 mls @ 75 mls/hr IV ASDIRECTED [facility] Last Admin: 02/17/18 10:58 Dose: 75 mls/hr Potassium Chloride (Kcl 10 Meq In Water 100 Ml) 100 mls @ 50 mls/hr IV ONETIME ONE Stop: 02/17/18 18:59 Last Admin: 02/17/18 16:44 Dose: Not Given Potassium Chloride 10 meq/ (Premix) 100 mls @ 100 mls/hr IV Q1H [facility] Stop: 02/18/18 11:59 Last Admin: 02/18/18 11:07 Dose: 60 mls/hr Nf Med Each ( Acetaminophen/Diphenhydramine 500- 25mg 1 Tab)*Pt Own Med* 1 tab PO BEDTIME PRN PRN Reason: Sleep Last Admin: 02/17/18 21:21 Dose: 1 tab Potassium Chloride (Klor-Con M20) 40 meq PO ONETIME ONE Stop: 02/15/18 11:22 Last Admin: 02/15/18 11:51 Dose: Not Given Potassium Chloride (Potassium Chloride Solution) 40 meq PO TIDMEALS [facility] Stop: 02/16/18 07:01 Last Admin: 02/15/18 18:24 Dose: Not Given Potassium Chloride (Potassium Chloride Solution) 40 meq PO TIDMEALS [facility] Stop: 02/16/18 11:01 Last Admin: 02/16/18 12:51 Dose: Not Given - My Orders Last 24 Hours: My Active Orders 02/18/18 08:32 Patient's Own Medication [Ptom] 1 each PO BEDTIME PRN 02/18/18 08:44 EKG Documentation Completion [RC] ASDIRECTED EKG 12 Lead [EK] Stat 02/18/18 09:00 Magnesium Sulfate/Water [Magnesium Sulfate 4 GM in Water 100 ML] 4 gm Premix Bag 1 bag IV ONETIME 02/18/18 09:15 Sodium Chloride 0.9% [Normal Saline] 500 ml IV ASDIRECTED 02/18/18 11:32 Echo Comp wo Cont [US] Routine 02/18/18 11:37 Consult to Dietary [Consult to Application Packaging Consultant] [CONS] Routine 02/18/18 11:53 INR,PT,PROTHROMBIN TIME [COAG] Routine 02/18/18 21:00 Benazepril [Lotensin] 20 mg PO BEDTIME hydroCHLOROthiazide 25 mg PO BEDTIME 02/18/18 23:00 Enoxaparin [Lovenox] 85 mg SUBCUT Q12H 02/19/18 05:11 INR,PT,PROTHROMBIN TIME [COAG] AM T4 FREE [CHEM] AM TSH [CHEM] AM 02/19/18 09:00 Warfarin [Coumadin] 10 mg PO DAILY@0900 ONE 02/19/18 09:01 Warfarin Pharmacy to Dose [Pharmacy to Dose - Warfarin] 0 dose .XX ASDIRECTED PRN 02/20/18 05:11 INR,PT,PROTHROMBIN TIME [COAG] AM 02/21/18 05:11 INR,PT,PROTHROMBIN TIME [COAG] AM 02/22/18 05:11 INR,PT,PROTHROMBIN TIME [COAG] AM 02/23/18 05:11 INR,PT,PROTHROMBIN TIME [COAG] AM - Plan Plan:: Patient was seen and examined at bedside in concert with the medical student. The assessment and plans were discussed and agreed upon with me. Patient unfortunately went into atrial fibrillation with rvr. Her heart rate went up as high as 179. Her EKG shows irregular rhythm with a heart rate of 170. She was given a one time dose of cardizem 10 mg IVP this morning but she did not respond to it. She has been moved to the unit and currently on cardizem drip. She elected to be on warfarin instead of NOACs. We will check her thyroid level and start warfarin protocol with heparin for stroke prophylaxis. She denies any hx/o major bleed or bleeding disorders. Dietary will be re-consulted for warfarin diet and education. 2D echo for baseline cardiac function and r/o intra-cardiac clot since her symptom may have started overnight.
[2018-02-18] MEDS ORDERED: Diltiazem 125 MG in Sodium Chloride 0.9% 100 ML IV SCH (09:45)
[2018-02-18] MEDS: Enoxaparin 100 MG/1 ML Syringe SUBCUT ONE ×2 (12:30→12:36)
[2018-02-18] MEDS ORDERED: Enoxaparin 80 MG/0.8 ML Syringe SUBCUT ONE (12:32)
[2018-02-18] MEDS ORDERED: Metoprolol Tartrate 25 MG Tab PO ONE (13:07)
[2018-02-18] MEDS: Loperamide 2 MG Cap PO PRN (13:34)
--- NOTE | 2018-02-18 14:51 | PCM.SN ---
- Free Text/Narrative Note: Was contacted by nursing around 0945 this am that Sara has gone into what appears to be A-fib with RVR. Nursing had ordered 12-lead EKG and A-fib with rate of 160 was confirmed. Nursing reports rate increased slowly up to 120's around 0830 today then up to 160-170's. Patient reports she feels palpitations in her chest. Patient also reports she has had and episode of this in the past which resolved rapidly and spontaneously. 10mg IV push Cardizem as ordered. This lowers patient's heart rate down to 120 however it quickly returns to 160s. Order was placed to move patient to the ICU and Cardizem drip was initiated. Dr. Stock aware of patient's change in condition.
[2018-02-18] MEDS: Famotidine 20 MG/2 ML SDV IVPUSH SCH (20:09)
[2018-02-18] MEDS: Metoprolol Tartrate 25 MG Tab PO SCH (20:09)
[2018-02-18] MEDS: Apixaban 5 MG Tab PO SCH (20:10)
[2018-02-18] MEDS ORDERED: Hydrochlorothiazide 25 MG Tab PO SCH (21:00)
[2018-02-18] MEDS ORDERED: Enoxaparin 100 MG/1 ML Syringe SUBCUT SCH (23:00)
[2018-02-19] MEDS: Dicyclomine 10 MG Cap PO SCH ×2 (06:08→11:35)
[2018-02-19] MEDS: Metoprolol Tartrate 25 MG Tab PO SCH (08:02)
[2018-02-19] MEDS: Apixaban 5 MG Tab PO SCH (08:03)
[2018-02-19] MEDS ORDERED: Warfarin 10 MG Tab PO ONE (09:00)
--- NOTE | 2018-02-19 11:28 | PCM.DCSUM1 ---
<Elida Panda - Last Filed: 02/19/18 13:35> Discharge Summary - Hospital Course HPI Initial Comments: 77 y/o female with history of IBS initially presented to the ER with diarrhea and fever which had been present for about one week. She reported decreased appetite and weight loss of 13 pounds during that time. She had recently traveled to [place] but denied any other travel, sick contacts, contaminated food/water, or recent antibiotic use. She denied any blood in stool, though did have some mucous. She had nausea but no vomiting. She had occasional crampy abdominal pain but this is not unusual with her IBS. Aside from IBS, she also has a history of hypertension which is controlled with medication. Workup in the ER showed her to be dehydrated with electrolyte abnormalities, including hypokalemia and hypomagnesiemia. She was admitted for observation and further evaluation and management, including fluid and electrolyte replacement. During her hospital stay, IVF and electrolyte replacement were administered and maintained. Stool culture, ova/parasites, and blood culture all returned negative. WBC decreased from 15.98 to 10.00. CRP decreased from 21.4 to 11.1. She remained afrebrile. Symptoms, labs, and vitals improved in the absence of antibiotic therapy, indicating a diagnosis of viral gastroenteritis exacerbated by pre-existing IBS, which is supported by the negative microbiology workup. Her hospital stay was uncomplicated until the third day, during which she had a sudden episode of tachycardia recorded by telemetry. EKG confirmed this to be atrial fibrillation with RVR with rate of 160. 10 mg IV push cardizem reduced heart rate temporarily. Patient was feeling palpitations at this time but denied chest pain or any other symptoms. She reports having episodes like this previously but she did not seek medical help as it always resolved spontaneously and was not bothersome to her. Following this episode she was transferred to the ICU and cardizem drip was initiated. She was chemically converted and repeat EKG showed sinus rhythm with a rate of 82. Patient is a candidate for anticoagulation therapy. She initially desired warfarin but after checking with her insurance company opted to be on eliquis instead. She was given a one time dose of loveonx 85 mg SC and eliquis 5 mg po BID was initiated. An echocardiogram was ordered and performed; no abnormalities were found. She remained stable through the night and today. She denied any symptoms or pain and no more episodes of a. fib were recorded. She is ready to return home and will follow up with PCP for further management of IBS and a. fib. Diagnosis: Stroke: No Modified Bay Scale: No Symptoms at All Modified Kena Scale Score: 0 - Discharge Data Discharge Date: 02/19/18 Discharge Disposition: Home, Self-Care 01 Condition: Good - Patient Summary/Data Consults: Consultations 02/16/18 13:36 Consult to Dietary [Consult to Fur Tailor] [CONS] Routine 02/18/18 11:37 Consult to Dietary [Consult to Fur Tailor] [CONS] Routine - Patient Instructions Diet: Usual Diet as Tolerated Activity: As Tolerated Driving: Do Not Drive Showering/Bathing: May Shower Notify Provider of: Fever, Increased Pain, Swelling and Redness, Nausea and/or Vomiting Other/Special Instructions: - Please take all new medications as directed. - Resume all home medications and continue routine home activities as tolerated. - Recommend checking vitals and follow up parameters before taking your blood pressure medications. - Call or follow up with your PCP for any questions or concerns after discharge. - Follow up with your PCP in 1-2 week(s). - Come back or seek immediate care should your symptoms persist or get worse - Discharge Plan *PRESCRIPTION DRUG MONITORING PROGRAM REVIEWED*: Not Applicable *COPY OF PRESCRIPTION DRUG MONITORING REPORT IN PATIENT CHRISTINA: Not Applicable Prescriptions/Med Rec: Apixaban [Eliquis] 5 mg PO BID #60 tablet Dicyclomine [Bentyl] 10 mg PO QIDACANDBED #60 cap Loperamide [Imodium] 2 mg PO Q6H PRN #12 cap PRN Reason: Diarrhea Metoprolol Tartrate [Lopressor] 25 mg PO Q12H #60 tablet Home Medications: Home Meds Acetaminophen/Diphenhydramine [Gnp Pain Relief Pm Caplet] 1 tab PO BEDTIME PRN 02/16/18 [History] Apixaban [Eliquis] 5 mg PO BID #60 tablet 02/19/18 [Rx] Benazepril [Lotensin] 20 mg PO DAILY #0 02/19/18 [Rx] Dicyclomine [Bentyl] 10 mg PO QIDACANDBED #60 cap 02/19/18 [Rx] Hydrochlorothiazide. 25 mg PO DAILY #0 02/19/18 [Rx] Loperamide [Imodium] 2 mg PO Q6H PRN #12 cap 02/19/18 [Rx] Metoprolol Tartrate [Lopressor] 25 mg PO Q12H #60 tablet 02/19/18 [Rx] Patient Handouts: Viral Gastroenteritis, Adult, [id number], Hypomagnesemia, Hypokalemia, Diet for Irritable Bowel Syndrome, Dehydration, Elderly, Easy-to- Read, Apixaban oral tablets, Atrial Fibrillation, Nnxa-ib-Nlic, Irritable Bowel Syndrome, Adult Referrals: PCP,None [Primary Care Provider] - - Discharge Summary/Plan Comment Discharge Summary/Plan Comment: Patient is stable and will be discharged today. She will resume home medications. Eliquis, lopressor, bentyl, and imodium are added to her regimen. She can continue diet and activity as tolerated. She will follow up with her PCP for further management of IBS and atrial fibrillation. She was instructed to come back to the hospital if her symptoms return or worsen. - General Info Date of Service: 02/19/18 Admission Dx/Problem (Free Text: Admission Diagnosis/Problem Admission Diagnosis/Problem Gastroenteritis Functional Status: Reports: Pain Controlled, Tolerating Diet, Ambulating, Urinating - Review of Systems General: Reports: No Symptoms HEENT: Reports: No Symptoms Pulmonary: Reports: No Symptoms Cardiovascular: Reports: No Symptoms Gastrointestinal: Reports: No Symptoms Genitourinary: Reports: No Symptoms Musculoskeletal: Reports: No Symptoms Skin: Reports: No Symptoms Neurological: Reports: No Symptoms Psychiatric: Reports: No Symptoms Systems Review Comment: Patient reports she is doing well today. She was up during the night to urinate but otherwise slept well with no issues through the night. She reports no pain and no symptoms today. Last bowel movement was yesterday morning. Diarrhea has resolved completely. She has no new cardiac symptoms today. She reports no other symptoms or pain. She is ready to return home. - Patient Data Vitals - Most Recent: Last Vital Signs Temp 97.4 F 02/19/18 07:52 Pulse 88 02/19/18 08:02 Resp 15 02/19/18 07:52 BP 136/71 02/19/18 08:02 Pulse Ox 94 L 02/19/18 07:52 Weight - Most Recent: 85.729 kg I&O - Last 24 hours: Intake & Output 02/18/18 02/19/18 02/19/18 22:59 06:59 14:59 Intake Total 2254 300 540 Output Total 200 200 Balance 2054 100 540 Lab Results - Last 24 hrs: Laboratory Results - last 24 hr 02/18/18 02/19/18 02/19/18 Range/Units 11:53 06:06 06:06 WBC 10.00 (3.98-10.04) K/mm3 RBC 4.33 (3.98-5.22) M/mm3 Hgb 11.9 (11.2-15.7) gm/L Hct 36.6 (34.1-44.9) % MCV 84.5 (79.4-94.8) fl MCH 27.5 (25.6-32.2) pg MCHC 32.5 (32.2-35.5) g/dl RDW Std Deviation 43.8 (36.4-46.3) fL Plt Count 338 (182-369) K/mm3 MPV 9.4 (9.4-12.3) fl Neut % (Auto) 75.2 H (34.0-71.1) % Lymph % (Auto) 6.9 L (19.3-51.7) % [place] % (Auto) 13.4 H (4.7-12.5) % Eos % (Auto) 3.6 (0.7-5.8) Baso % (Auto) 0.2 (0.1-1.2) % Neut # (Auto) 7.52 H (1.56-6.13) K/mm3 Lymph # (Auto) 0.69 L (1.18-3.74) K/mm3 [place] # (Auto) 1.34 H (0.24-0.36) K/mm3 Eos # (Auto) 0.36 (0.04-0.36) K/mm3 Baso # (Auto) 0.02 (0.01-0.08) K/mm3 Manual Slide Review Abnormal smear PT 11.1 (9.5-12.1) SECONDS INR 1.02 Sodium 139 (136-145) mEq/L Potassium 3.6 (3.5-5.1) mEq/L Chloride 102 (98-107) mEq/L Carbon Dioxide 30 (21-32) mEq/L Anion Gap 10.6 (5-15) BUN 5 L (7-18) mg/dL Creatinine 0.8 (0.55-1.02) mg/dL Est Cr Clr Drug Dosing 47.32 mL/min Estimated GFR (MDRD) > 60 (>60) mL/min BUN/Creatinine Ratio 6.3 L (14-18) Glucose 89 (83-115) mg/dL Calcium 8.7 (8.5-10.1) mg/dL Magnesium 1.8 (1.8-2.4) mg/dl C-Reactive Protein 11.1 H* (<1.0) mg/dL Free T4 (0.76-1.46) ng/dL TSH 3rd Generation (0.358-3.74) uIU/mL 02/19/18 02/19/18 Range/Units 06:06 06:06 WBC (3.98-10.04) K/mm3 RBC (3.98-5.22) M/mm3 Hgb (11.2-15.7) gm/L Hct (34.1-44.9) % MCV (79.4-94.8) fl MCH (25.6-32.2) pg MCHC (32.2-35.5) g/dl RDW Std Deviation (36.4-46.3) fL Plt Count (182-369) K/mm3 MPV (9.4-12.3) fl Neut % (Auto) (34.0-71.1) % Lymph % (Auto) (19.3-51.7) % [place] % (Auto) (4.7-12.5) % Eos % (Auto) (0.7-5.8) Baso % (Auto) (0.1-1.2) % Neut # (Auto) (1.56-6.13) K/mm3 Lymph # (Auto) (1.18-3.74) K/mm3 [place] # (Auto) (0.24-0.36) K/mm3 Eos # (Auto) (0.04-0.36) K/mm3 Baso # (Auto) (0.01-0.08) K/mm3 Manual Slide Review PT 11.7 (9.5-12.1) SECONDS INR 1.07 Sodium (136-145) mEq/L Potassium (3.5-5.1) mEq/L Chloride (98-107) mEq/L Carbon Dioxide (21-32) mEq/L Anion Gap (5-15) BUN (7-18) mg/dL Creatinine (0.55-1.02) mg/dL Est Cr Clr Drug Dosing mL/min Estimated GFR (MDRD) (>60) mL/min BUN/Creatinine Ratio (14-18) Glucose (83-115) mg/dL Calcium (8.5-10.1) mg/dL Magnesium (1.8-2.4) mg/dl C-Reactive Protein (<1.0) mg/dL Free T4 1.78 H (0.76-1.46) ng/dL TSH 3rd Generation 0.744 (0.358-3.74) uIU/mL INEZ Results - Last 24 hrs: Microbiology 02/15/18 15:20 Aerobic Blood Culture - Preliminary Blood NO GROWTH AFTER 3 DAYS Anaerobic Blood Culture - Preliminary NO GROWTH AFTER 3 DAYS 02/16/18 06:50 Stool Culture - Preliminary Stool / Feces Shiga Toxin I - Final NEGATIVE FOR SHIGA TOXIN 1 Shiga Toxin II - Final NEGATIVE FOR SHIGA TOXIN 2 02/16/18 06:50 Cryptosporidium/Giardia - Final Stool / Feces Med Orders - Current: Current Medications Acetaminophen (Tylenol) 650 mg PO Q4H PRN PRN Reason: Pain/Fever Last Admin: 02/16/18 00:25 Dose: 650 mg Apixaban (Eliquis) 5 mg PO BID [facility] Last Admin: 02/19/18 08:03 Dose: 5 mg Benazepril HCl (Lotensin) 20 mg PO BEDTIME [facility] Last Admin: 02/18/18 20:10 Dose: 20 mg Bismuth Subsalicylate (Pepto Bismol) 15 ml PO Q6H PRN PRN Reason: Diarrhea Dicyclomine HCl (Bentyl) 10 mg PO QIDACANDBED [facility] Last Admin: 02/19/18 06:08 Dose: 10 mg Famotidine (Pepcid) 20 mg IVPUSH BEDTIME [facility] Last Admin: 02/18/18 20:09 Dose: 20 mg Hydralazine HCl (Apresoline) 20 mg IVPUSH Q6H PRN PRN Reason: Hypertension Hydrochlorothiazide (Hydrochlorothiazide) 25 mg PO BEDTIME [facility] Last Admin: 10/03/18 20:09 Dose: 25 mg Diltiazem HCl 125 mg/ Sodium (Chloride) 125 mls @ 5 mls/hr IV TITRATE EDITH; Protocol Last Titration: 02/18/18 13:12 Dose: 0 mg/hr, 0 mls/hr Loperamide HCl (Imodium) 2 mg PO Q6H PRN PRN Reason: Diarrhea Last Admin: 02/18/18 13:34 Dose: 2 mg Magnesium Sulfate (Pharmacy To Dose - Magnesium Replacement) 0 dose .XX ASDIRECTED PRN PRN Reason: RX TO WATCH MAG Metoprolol Tartrate (Lopressor) 25 mg PO Q12H [facility] Last Admin: 02/19/18 08:02 Dose: 25 mg Ondansetron HCl (Zofran) 4 mg IVPUSH Q4HR PRN PRN Reason: Nausea/Vomiting Last Admin: 02/16/18 07:14 Dose: 4 mg Acetaminophen/Diphenhydramine 500- 25mg 1 Tab*Pt Own Med* 1 each PO BEDTIME PRN PRN Reason: Sleep Last Admin: 02/18/18 20:15 Dose: 1 each Potassium Chloride (Pharmacy To Dose - Potassium Replacement) 0 dose .XX ASDIRECTED EDITH Sodium Chloride (Saline Flush) 10 ml FLUSH ASDIRECTED PRN PRN Reason: Keep Vein Open Last Admin: 02/15/18 09:57 Dose: 10 ml Discontinued Medications Benazepril HCl (Lotensin) 20 mg PO BEDTIME [facility] Last Admin: 02/17/18 21:19 Dose: 20 mg Diltiazem HCl (Cardizem) 10 mg IVPUSH ONETIME ONE Stop: 02/18/18 09:01 Last Admin: 02/18/18 09:06 Dose: 10 mg Enoxaparin Sodium (Lovenox) 85 mg SUBCUT Q12H [facility] Enoxaparin Sodium (Lovenox) 85 mg SUBCUT ONETIME ONE Stop: 02/18/18 11:33 Last Admin: 02/18/18 12:36 Dose: 85 mg Enoxaparin Sodium (Lovenox) 85 mg SUBCUT ONETIME ONE Stop: 02/18/18 12:33 Last Admin: 02/18/18 12:46 Dose: Not Given Famotidine (Pepcid) 20 mg IVPUSH BID [facility] Last Admin: 02/15/18 22:04 Dose: Not Given Hydrochlorothiazide (Hydrochlorothiazide) 25 mg PO BEDTIME [facility] Last Admin: 02/17/18 21:20 Dose: 25 mg Sodium Chloride (Normal Saline) 1,000 mls @ 1,000 mls/hr IV ONETIME ONE Stop: 02/15/18 10:45 Last Admin: 02/15/18 09:58 Dose: 1,000 mls/hr Potassium Chloride 10 meq/ (Premix) 100 mls @ 100 mls/hr IV Q1H [facility]ITH Stop: 02/15/18 15:29 Last Admin: 02/15/18 18:21 Dose: 100 mls/hr Magnesium Sulfate 2 gm/ Premix 50 mls @ 25 mls/hr IV ONETIME ONE Stop: 02/15/18 13:21 Last Admin: 02/15/18 11:50 Dose: 25 mls/hr Sodium Chloride (Normal Saline) 1,000 mls @ 1,000 mls/hr IV ONETIME ONE Stop: 02/15/18 12:21 Last Admin: 02/15/18 11:51 Dose: 1,000 mls/hr Sodium Chloride (Normal Saline) Confirm Administered Dose 1,000 mls @ as directed .ROUTE .STK-MED ONE Stop: 02/15/18 13:17 Last Admin: 02/15/18 14:09 Dose: Not Given Sodium Chloride (Normal Saline) 1,000 mls @ 150 mls/hr IV ASDIRECTED [facility] Last Admin: 02/16/18 16:42 Dose: 150 mls/hr Magnesium Sulfate 2 gm/ Premix 50 mls @ 25 mls/hr IV ONETIME ONE Stop: 02/15/18 19:59 Last Admin: 02/15/18 17:59 Dose: 25 mls/hr Potassium Chloride 10 meq/ (Premix) 100 mls @ 100 mls/hr IV ONETIME ONE Stop: 02/15/18 19:14 Last Admin: 02/15/18 18:23 Dose: Not Given Potassium Chloride 10 meq/ (Premix) 100 mls @ 50 mls/hr IV Q2H [facility] Stop: 02/16/18 18:59 Last Admin: 02/16/18 17:09 Dose: 50 mls/hr Magnesium Sulfate 2 gm/ Premix 50 mls @ 25 mls/hr IV ONETIME ONE Stop: 02/17/18 10:59 Last Admin: 02/17/18 09:43 Dose: 25 mls/hr Potassium Chloride 10 meq/ (Premix) 100 mls @ 100 mls/hr IV Q1H [facility] Stop: 02/17/18 15:59 Last Admin: 02/17/18 16:42 Dose: 60 mls/hr Sodium Chloride (Normal Saline) 1,000 mls @ 75 mls/hr IV ASDIRECTED [facility] Sodium Chloride (Normal Saline) 1,000 mls @ 75 mls/hr IV ASDIRECTED [facility] Last Admin: 02/17/18 10:58 Dose: 75 mls/hr Potassium Chloride (Kcl 10 Meq In Water 100 Ml) 100 mls @ 50 mls/hr IV ONETIME ONE Stop: 02/17/18 18:59 Last Admin: 02/17/18 16:44 Dose: Not Given Magnesium Sulfate 4 gm/ Premix 100 mls @ 25 mls/hr IV ONETIME ONE Stop: 02/18/18 12:59 Last Admin: 02/18/18 09:21 Dose: 25 mls/hr Potassium Chloride 10 meq/ (Premix) 100 mls @ 100 mls/hr IV Q1H [facility] Stop: 02/18/18 11:59 Last Admin: 02/18/18 13:08 Dose: 60 mls/hr Sodium Chloride (Normal Saline) 500 mls @ 75 mls/hr IV ASDIRECTED [facility] Stop: 02/18/18 15:00 Last Admin: 02/18/18 09:21 Dose: 75 mls/hr Metoprolol Tartrate (Lopressor) 25 mg PO ONETIME ONE Stop: 02/18/18 13:08 Last Admin: 02/18/18 13:20 Dose: 25 mg Nf Med Each ( Acetaminophen/Diphenhydramine 500- 25mg 1 Tab)*Pt Own Med* 1 tab PO BEDTIME PRN PRN Reason: Sleep Last Admin: 02/17/18 21:21 Dose: 1 tab Potassium Chloride (Klor-Con M20) 40 meq PO ONETIME ONE Stop: 02/15/18 11:22 Last Admin: 02/15/18 11:51 Dose: Not Given Potassium Chloride (Potassium Chloride Solution) 40 meq PO TIDMEALS [facility] Stop: 02/16/18 07:01 Last Admin: 02/15/18 18:24 Dose: Not Given Potassium Chloride (Potassium Chloride Solution) 40 meq PO TIDMEALS [facility] Stop: 02/16/18 11:01 Last Admin: 02/16/18 12:51 Dose: Not Given Warfarin Sodium (Coumadin) 10 mg PO DAILY@0900 ONE Stop: 02/19/18 09:01 Warfarin Sodium (Pharmacy To Dose - Warfarin) 0 dose .XX ASDIRECTED PRN PRN Reason: RX TO DOSE WARFARIN - Exam General: Reports: Alert, Oriented, Cooperative, No Acute Distress HEENT: Reports: Pupils Equal, Pupils Reactive, EOMI, Mucous Membr. Moist/[place] Neck: Reports: Supple, Trachea Midline Lungs: Reports: Clear to Auscultation, Normal Respiratory Effort Cardiovascular: Reports: Regular Rate, Regular Rhythm GI/Abdominal Exam: Normal Bowel Sounds, Soft, Non-Tender (Female) Exam: Deferred Rectal (Female) Exam: Deferred Back Exam: Reports: Normal Inspection, Full Range of Motion Extremities: Normal Inspection, Normal Range of Motion, Non-Tender Skin: Reports: Warm, Dry, Intact Neurological: Reports: No New Focal Deficit Psy/Mental Status: Reports: Alert, Normal Affect, Normal Mood Physical Findings Comments:: Patient appears comfortable and in no acute distress today. She is pleasant and cooperative. She is sitting up in her chair throughout exam. No abnormalities are found on exam. She is prepared to return home. Elida Panda, MS-3. Dr. Stock has examined the patient and reviewed the note. <Gus Stock T - Last Filed: 02/20/18 10:48> Discharge Summary - Discharge Diagnosis/Problem(s) (1) Gastroenteritis and colitis, viral SNOMED Code(s): 930160327 ICD Code: A08.4 - VIRAL INTESTINAL INFECTION, UNSPECIFIED Status: Acute (2) Atrial fibrillation with RVR SNOMED Code(s): 380734638280810 ICD Code: I48.91 - UNSPECIFIED ATRIAL FIBRILLATION Status: Resolved (3) Dehydration SNOMED Code(s): 02504306 ICD Code: E86.0 - DEHYDRATION Status: Resolved (4) Diarrhea SNOMED Code(s): 06553850 ICD Code: R19.7 - DIARRHEA, UNSPECIFIED Status: Resolved Qualifiers: Diarrhea type: presumed infectious Qualified Code(s): R19.7 - Diarrhea, unspecified (5) Hypokalemia SNOMED Code(s): 26443391 ICD Code: E87.6 - HYPOKALEMIA Status: Resolved (6) Hypomagnesemia SNOMED Code(s): 131837696 ICD Code: E83.42 - HYPOMAGNESEMIA Status: Resolved (7) History of IBS SNOMED Code(s): 73568404403435 ICD Code: Z87.19 - PERSONAL HISTORY OF OTHER DISEASES OF THE DIGESTIVE SYSTEM Status: Acute - Patient Summary/Data Operative Procedure(s) Performed: None Complications: Development of PAF Consults: Consultations 02/16/18 13:36 Consult to Dietary [Consult to Fur Tailor] [CONS] Routine 02/18/18 11:37 Consult to Dietary [Consult to Fur Tailor] [CONS] Routine Labs Pending at D/C: None Recommended Follow-up Testing/Procedures: None Planned Operative Procedure(s) after DC: None Hospital Course: Patient was seen and examined at bedside in concert with the medical student. The discharge assessment and plans were discussed and agreed upon with me. Briefly, patient was admitted primarily for gastroenteritis likely from combined viral and IBS in etiology. All her basic GI infectious work up were negative. But with supportive care and basic medical management, she slowly respond to this regimen. Her hospital course was mildly complicated by a sudden development of PAF but she chemically converted to sinus rhythm after treatment of Cardizem drip. However we elected to put on rate control medication as well novel anti- coagulation (Eliquis) given her [id number] score of 2 and history of previous paroxysmal episodes. Patient was stable upon discharge. She was released with anti-diarrheal and anti -spastic agents. She was advised to follow discharge instructions and was further advised to follow up with her PCP after discharge. The patient and her significant other at bed side expressed understanding and in agreement with the plans as discussed above. All questions were answered. - Patient Data Vitals - Most Recent: Last Vital Signs Temp 36.1 C 02/19/18 11:26 Pulse 80 02/19/18 11:26 Resp 16 02/19/18 11:26 BP 119/60 02/19/18 11:26 Pulse Ox 95 02/19/18 11:26 I&O - Last 24 hours: Intake & Output 02/19/18 02/19/18 02/19/18 06:59 14:59 22:59 Intake Total 300 1040 Output Total 200 400 Balance 100 640 Lab Results - Last 24 hrs: Laboratory Results - last 24 hr 02/19/18 02/19/18 02/19/18 Range/Units 06:06 06:06 06:06 WBC 10.00 (3.98-10.04) K/mm3 RBC 4.33 (3.98-5.22) M/mm3 Hgb 11.9 (11.2-15.7) gm/L Hct 36.6 (34.1-44.9) % MCV 84.5 (79.4-94.8) fl MCH 27.5 (25.6-32.2) pg MCHC 32.5 (32.2-35.5) g/dl RDW Std Deviation 43.8 (36.4-46.3) fL Plt Count 338 (182-369) K/mm3 MPV 9.4 (9.4-12.3) fl Neut % (Auto) 75.2 H (34.0-71.1) % Lymph % (Auto) 6.9 L (19.3-51.7) % [place] % (Auto) 13.4 H (4.7-12.5) % Eos % (Auto) 3.6 (0.7-5.8) Baso % (Auto) 0.2 (0.1-1.2) % Neut # (Auto) 7.52 H (1.56-6.13) K/mm3 Lymph # (Auto) 0.69 L (1.18-3.74) K/mm3 [place] # (Auto) 1.34 H (0.24-0.36) K/mm3 Eos # (Auto) 0.36 (0.04-0.36) K/mm3 Baso # (Auto) 0.02 (0.01-0.08) K/mm3 Manual Slide Review Abnormal smear PT 11.7 (9.5-12.1) SECONDS INR 1.07 Sodium 139 (136-145) mEq/L Potassium 3.6 (3.5-5.1) mEq/L Chloride 102 (98-107) mEq/L Carbon Dioxide 30 (21-32) mEq/L Anion Gap 10.6 (5-15) BUN 5 L (7-18) mg/dL Creatinine 0.8 (0.55-1.02) mg/dL Est Cr Clr Drug Dosing 47.32 mL/min Estimated GFR (MDRD) > 60 (>60) mL/min BUN/Creatinine Ratio 6.3 L (14-18) Glucose 89 (83-115) mg/dL Calcium 8.7 (8.5-10.1) mg/dL Magnesium 1.8 (1.8-2.4) mg/dl C-Reactive Protein 11.1 H* (<1.0) mg/dL Free T4 (0.76-1.46) ng/dL TSH 3rd Generation (0.358-3.74) uIU/mL 02/19/18 Range/Units 06:06 WBC (3.98-10.04) K/mm3 RBC (3.98-5.22) M/mm3 Hgb (11.2-15.7) gm/L Hct (34.1-44.9) % MCV (79.4-94.8) fl MCH (25.6-32.2) pg MCHC (32.2-35.5) g/dl RDW Std Deviation (36.4-46.3) fL Plt Count (182-369) K/mm3 MPV (9.4-12.3) fl Neut % (Auto) (34.0-71.1) % Lymph % (Auto) (19.3-51.7) % [place] % (Auto) (4.7-12.5) % Eos % (Auto) (0.7-5.8) Baso % (Auto) (0.1-1.2) % Neut # (Auto) (1.56-6.13) K/mm3 Lymph # (Auto) (1.18-3.74) K/mm3 [place] # (Auto) (0.24-0.36) K/mm3 Eos # (Auto) (0.04-0.36) K/mm3 Baso # (Auto) (0.01-0.08) K/mm3 Manual Slide Review PT (9.5-12.1) SECONDS INR Sodium (136-145) mEq/L Potassium (3.5-5.1) mEq/L Chloride (98-107) mEq/L Carbon Dioxide (21-32) mEq/L Anion Gap (5-15) BUN (7-18) mg/dL Creatinine (0.55-1.02) mg/dL Est Cr Clr Drug Dosing mL/min Estimated GFR (MDRD) (>60) mL/min BUN/Creatinine Ratio (14-18) Glucose (83-115) mg/dL Calcium (8.5-10.1) mg/dL Magnesium (1.8-2.4) mg/dl C-Reactive Protein (<1.0) mg/dL Free T4 1.78 H (0.76-1.46) ng/dL TSH 3rd Generation 0.744 (0.358-3.74) uIU/mL [facility] Results - Last 24 hrs: Microbiology 02/15/18 15:20 Aerobic Blood Culture - Preliminary Blood NO GROWTH AFTER 4 DAYS Anaerobic Blood Culture - Preliminary NO GROWTH AFTER 4 DAYS 02/16/18 06:50 Stool Culture - Preliminary Stool / Feces Shiga Toxin I - Final NEGATIVE FOR SHIGA TOXIN 1 Shiga Toxin II - Final NEGATIVE FOR SHIGA TOXIN 2 Med Orders - Current: Current Medications Discontinued Medications Acetaminophen (Tylenol) 650 mg PO Q4H PRN PRN Reason: Pain/Fever Last Admin: 02/16/18 00:25 Dose: 650 mg Apixaban (Eliquis) 5 mg PO BID [facility] Last Admin: 02/19/18 08:03 Dose: 5 mg Benazepril HCl (Lotensin) 20 mg PO BEDTIME [facility] Last Admin: 02/17/18 21:19 Dose: 20 mg Benazepril HCl (Lotensin) 20 mg PO BEDTIME [facility] Last Admin: 02/18/18 20:10 Dose: 20 mg Bismuth Subsalicylate (Pepto Bismol) 15 ml PO Q6H PRN PRN Reason: Diarrhea Dicyclomine HCl (Bentyl) 10 mg PO QIDACANDBED [facility] Last Admin: 02/19/18 11:35 Dose: 10 mg Diltiazem HCl (Cardizem) 10 mg IVPUSH ONETIME ONE Stop: 02/18/18 09:01 Last Admin: 02/18/18 09:06 Dose: 10 mg Enoxaparin Sodium (Lovenox) 85 mg SUBCUT Q12H [facility] Enoxaparin Sodium (Lovenox) 85 mg SUBCUT ONETIME ONE Stop: 02/18/18 11:33 Last Admin: 02/18/18 12:36 Dose: 85 mg Enoxaparin Sodium (Lovenox) 85 mg SUBCUT ONETIME ONE Stop: 02/18/18 12:33 Last Admin: 02/18/18 12:46 Dose: Not Given Famotidine (Pepcid) 20 mg IVPUSH BID [facility] Last Admin: 02/15/18 22:04 Dose: Not Given Famotidine (Pepcid) 20 mg IVPUSH BEDTIME [facility] Last Admin: 02/18/18 20:09 Dose: 20 mg Hydralazine HCl (Apresoline) 20 mg IVPUSH Q6H PRN PRN Reason: Hypertension Hydrochlorothiazide (Hydrochlorothiazide) 25 mg PO BEDTIME [facility] Last Admin: 02/17/18 21:20 Dose: 25 mg Hydrochlorothiazide (Hydrochlorothiazide) 25 mg PO BEDTIME [facility] Last Admin: 02/18/18 20:09 Dose: 25 mg Sodium Chloride (Normal Saline) 1,000 mls @ 1,000 mls/hr IV ONETIME ONE Stop: 02/15/18 10:45 Last Admin: 02/15/18 09:58 Dose: 1,000 mls/hr Potassium Chloride 10 meq/ (Premix) 100 mls @ 100 mls/hr IV Q1H [facility] Stop: 02/15/18 15:29 Last Admin: 02/15/18 18:21 Dose: 100 mls/hr Magnesium Sulfate 2 gm/ Premix 50 mls @ 25 mls/hr IV ONETIME ONE Stop: 02/15/18 13:21 Last Admin: 02/15/18 11:50 Dose: 25 mls/hr Sodium Chloride (Normal Saline) 1,000 mls @ 1,000 mls/hr IV ONETIME ONE Stop: 02/15/18 12:21 Last Admin: 02/15/18 11:51 Dose: 1,000 mls/hr Sodium Chloride (Normal Saline) Confirm Administered Dose 1,000 mls @ as directed .ROUTE .STK-MED ONE Stop: 02/15/18 13:17 Last Admin: 02/15/18 14:09 Dose: Not Given Sodium Chloride (Normal Saline) 1,000 mls @ 150 mls/hr IV ASDIRECTED [facility] Last Admin: 02/16/18 16:42 Dose: 150 mls/hr Magnesium Sulfate 2 gm/ Premix 50 mls @ 25 mls/hr IV ONETIME ONE Stop: 02/15/18 19:59 Last Admin: 02/15/18 17:59 Dose: 25 mls/hr Potassium Chloride 10 meq/ (Premix) 100 mls @ 100 mls/hr IV ONETIME ONE Stop: 02/15/18 19:14 Last Admin: 02/15/18 18:23 Dose: Not Given Potassium Chloride 10 meq/ (Premix) 100 mls @ 50 mls/hr IV Q2H EDITH Stop: 02/16/18 18:59 Last Admin: 02/16/18 17:09 Dose: 50 mls/hr Magnesium Sulfate 2 gm/ Premix 50 mls @ 25 mls/hr IV ONETIME ONE Stop: 02/17/18 10:59 Last Admin: 02/17/18 09:43 Dose: 25 mls/hr Potassium Chloride 10 meq/ (Premix) 100 mls @ 100 mls/hr IV Q1H EDITH Stop: 02/17/18 15:59 Last Admin: 02/17/18 16:42 Dose: 60 mls/hr Sodium Chloride (Normal Saline) 1,000 mls @ 75 mls/hr IV ASDIRECTED EDITH Sodium Chloride (Normal Saline) 1,000 mls @ 75 mls/hr IV ASDIRECTED EDITH Last Admin: 02/17/18 10:58 Dose: 75 mls/hr Potassium Chloride (Kcl 10 Meq In Water 100 Ml) 100 mls @ 50 mls/hr IV ONETIME ONE Stop: 02/17/18 18:59 Last Admin: 02/17/18 16:44 Dose: Not Given Magnesium Sulfate 4 gm/ Premix 100 mls @ 25 mls/hr IV ONETIME ONE Stop: 02/18/18 12:59 Last Admin: 02/18/18 09:21 Dose: 25 mls/hr Potassium Chloride 10 meq/ (Premix) 100 mls @ 100 mls/hr IV Q1H EDITH Stop: 02/18/18 11:59 Last Admin: 02/18/18 13:08 Dose: 60 mls/hr Sodium Chloride (Normal Saline) 500 mls @ 75 mls/hr IV ASDIRECTED EDITH Stop: 02/18/18 15:00 Last Admin: 02/18/18 09:21 Dose: 75 mls/hr Diltiazem HCl 125 mg/ Sodium (Chloride) 125 mls @ 5 mls/hr IV TITRATE EDITH; Protocol Last Titration: 10/03/18 13:12 Dose: 0 mg/hr, 0 mls/hr Loperamide HCl (Imodium) 2 mg PO Q6H PRN PRN Reason: Diarrhea Last Admin: 02/18/18 13:34 Dose: 2 mg Magnesium Sulfate (Pharmacy To Dose - Magnesium Replacement) 0 dose .XX ASDIRECTED PRN PRN Reason: RX TO WATCH MAG Metoprolol Tartrate (Lopressor) 25 mg PO ONETIME ONE Stop: 02/18/18 13:08 Last Admin: 02/18/18 13:20 Dose: 25 mg Metoprolol Tartrate (Lopressor) 25 mg PO Q12H EDITH Last Admin: 02/19/18 08:02 Dose: 25 mg Nf Med Each ( Acetaminophen/Diphenhydramine 500- 25mg 1 Tab)*Pt Own Med* 1 tab PO BEDTIME PRN PRN Reason: Sleep Last Admin: 02/17/18 21:21 Dose: 1 tab Ondansetron HCl (Zofran) 4 mg IVPUSH Q4HR PRN PRN Reason: Nausea/Vomiting Last Admin: 02/16/18 07:14 Dose: 4 mg Acetaminophen/Diphenhydramine 500- 25mg 1 Tab*Pt Own Med* 1 each PO BEDTIME PRN PRN Reason: Sleep Last Admin: 02/18/18 20:15 Dose: 1 each Potassium Chloride (Klor-Con M20) 40 meq PO ONETIME ONE Stop: 02/15/18 11:22 Last Admin: 02/15/18 11:51 Dose: Not Given Potassium Chloride (Potassium Chloride Solution) 40 meq PO TIDMEALS EDITH Stop: 02/16/18 07:01 Last Admin: 02/15/18 18:24 Dose: Not Given Potassium Chloride (Potassium Chloride Solution) 40 meq PO TIDMEALS EDITH Stop: 02/16/18 11:01 Last Admin: 02/16/18 12:51 Dose: Not Given Potassium Chloride (Pharmacy To Dose - Potassium Replacement) 0 dose .XX ASDIRECTED EDITH Sodium Chloride (Saline Flush) 10 ml FLUSH ASDIRECTED PRN PRN Reason: Keep Vein Open Last Admin: 02/15/18 09:57 Dose: 10 ml Warfarin Sodium (Coumadin) 10 mg PO DAILY@0900 ONE Stop: 02/19/18 09:01 Warfarin Sodium (Pharmacy To Dose - Warfarin) 0 dose .XX ASDIRECTED PRN PRN Reason: RX TO DOSE WARFARIN
== END 2018-02-19 12:15 | disposition home or self-care (01) | DRG 392 ==
LOC: JD.ED 09:07 → JD.MS 12:21 → OBSVTOIN 02-17 14:42 → JD.MS 02-17 16:50 → JD.ICU 02-18 09:39
PROVIDERS: ADMIT Internal Medicine Cardiovascular Disease; ATTEND Internal Medicine Cardiovascular Disease
DX: A09 Infectious gastroenteritis and colitis, unspecified (principal); A08.4 Viral intestinal infection, unspecified; I48.0 Paroxysmal atrial fibrillation; E87.6 Hypokalemia; K58.9 Irritable bowel syndrome, unspecified; E83.42 Hypomagnesemia; E86.0 Dehydration; I10 Essential (primary) hypertension; K58.0 Irritable bowel syndrome with diarrhea; Z88.1 Allergy status to other antibiotic agents; R53.81 Other malaise; R53.1 Weakness; R53.83 Other fatigue; R50.9 Fever, unspecified; Z88.2 Allergy status to sulfonamides; Z88.8 Allergy status to other drugs, medicaments and biological substances; Z79.899 Other long term (current) drug therapy; Z66 Do not resuscitate
CPT/HCPCS: 36415 ×3; 80048 ×2; 80053; 81001; 83690; 83735 ×3; 85025 ×3; 86140 ×2; 86677; 87040; 87046; 87086; 87328; 87329; 87338; 93005; 96361; 96365; 99285; A9270 ×15; J2405; J3480 ×9; J3490 ×2; J7040 ×7; J7050; 84439; 84443; 85610; 87427; 93306; 99284; J1650; J3475; J7030